=== PATIENT | female | born 1990 | race Caucasian/White ===

== ENCOUNTER 2019-04-14 19:45 | Emergency (ER) | payer BC ==
[~2019-04-14] VITALS: Ht 165.1 cm; Wt 104.3 kg
[~2019-04-14 19:45] MED LIST: AMOX TR-K CLV1 EAC1 PO; AREDIA; BIAXIN500 MG PO; CRUTCH1 EACH MISC; CYCLOBENZAPRINE10 MG PO; DOXYCYCLINE HY100 MG PO; FLAGYL500 MG PO; FOLIC ACID1 MG PO; GUAIFENESIN-CO118 ML PO; HYDROCODONE-IB1 EAC1 PO; IBUPROFEN600 MG PO; IBUPROFEN800 MG PO; LETROZOLE2.5 MG PO; MENEST1.25 MG PO; MIRENA1 EACH IY; NAPROXEN500 MG PO; NORCO 10-325 T1 EACH PO; NORCO 5-325 TA1 EACH PO; PERCOCET 5-3251 EACH PO; PRENATAL CAPLE1 EACH PO; PROCHLORPERAZIN10 MG PO; PROVENTIL HFA6.7 GM INH; PROVERA10 MG PO; TAMOXIFEN CITRA20 MG PO; TYLENOL COLD-F240 ML PO; VITAMIN B-6100 MG PO; VITAMIN D5000 UNIT PO
[2019-04-15] MEDS ORDERED: DICLOXACILLIN250 MG PO (01:17)
[2019-04-15] MEDS ORDERED: PRILOSEC OTC20 MG PO (01:17)
== END 2019-04-15 01:29 | disposition home or self-care (01) ==
LOC: ED 19:45
DX: K11.20 Sialoadenitis, unspecified (principal); J06.9 Acute upper respiratory infection, unspecified; K22.4 Dyskinesia of esophagus; F17.200 Nicotine dependence, unspecified, uncomplicated; Z85.3 Personal history of malignant neoplasm of breast; Z85.41 Personal history of malignant neoplasm of cervix uteri
CPT/HCPCS: 70360; 70491; 71046; 80053; 82150; 85025; 96361; 96374; 96375; 99284-25; J1100; J1610; J7030; Q9967

== ENCOUNTER 2019-04-16 13:32 | Emergency (ER) | payer BC ==
[~2019-04-16] VITALS: Ht 167.6 cm; Wt 117.0 kg
[~2019-04-16 13:32] MED LIST changes: +DICLOXACILLIN250 MG PO; +PRILOSEC OTC20 MG PO
--- OUTSIDE RECORDS SUMMARY | 2019-04-16 13:36 | XMS ---
PreManage Notification: VINEET CRANDALL Security Tube Cleaner Events No recent Security Events currently on file CRITERIA MET - [facility] - 2 Visits in 30 Days CARE PROVIDERS CHRIS GLASS [facility] Shruthi Kline PHONE: Unknown Maxim Maharaj Current PHONE: Unknown Marina has no Care Guidelines for this patient. Eda VISIT COUNT (12 MO.) [address] [place] [address] TOTAL 3 NOTE: Visits indicate total known visits. ED/UCC VISIT TRACKING (12 MO.) 04/16/2019 13:33 [facility] [place] TYPE: Emergency COMPLAINT: - THROAT PAIN 04/14/2019 19:46 [facility] [place] TYPE: Emergency COMPLAINT: - SOB, SWELLING 06/15/2018 14:33 [facility] [place] TYPE: Emergency COMPLAINT: - HEADACHE,NAUSEA DIAGNOSES: - Personal history of malignant neoplasm of cervix uteri - Dehydration - Nicotine dependence, unspecified, uncomplicated - Other shelter (current) drug therapy - Anemia, unspecified - Personal history of malignant neoplasm of breast - Headache INPATIENT VISIT TRACKING (12 MO.) No inpatient visits to display in this time frame [email or web address]
== END 2019-04-16 22:06 | disposition short-term general hospital (02) ==
LOC: ED 13:32
DX: K11.20 Sialoadenitis, unspecified (principal); Z85.3 Personal history of malignant neoplasm of breast; Z85.41 Personal history of malignant neoplasm of cervix uteri; Z87.891 Personal history of nicotine dependence; Z79.899 Other long term (current) drug therapy
CPT/HCPCS: 70491; 80053; 85025; 86703; 99284-25; J0295; J1100; J1885; J7030

== ENCOUNTER 2019-05-06 08:55 | Day surgery (SDC) | payer BC ==
[~2019-05-06] VITALS: Ht 167.6 cm; Wt 117.0 kg
--- NOTE | 2019-05-06 14:21 | NUR ---
05/06/19 1421 Latha Jorge 1341 PT ARRIVED TO PACU ON 8L VIA MASK, RESP EVEN AND UNLABORED. PT REACTIVE TO TACTILE STIMULI. 1345 PT DENIES PAIN AND THEN BACK TO SLEEP. 1350 PT WOKE AND STARTS CRYING AND GRIMACING. PT REPORTS PAIN 7/10, PT REPORTS HAVING A HARD TIME TALKING DUE TO PAIN AND NAUSEA AND NEEDING TO VOID. BED TORIBIO PLACED UNDER PT. 1355 NAUSEA AND PAIN MEDICATION GIVEN PER EMAR. 1400 PT CONTINUES TO CRY AND REACHING FOR HER THROAT. PAIN MEDICATION GIVEN.
--- NOTE | 2019-05-06 15:20 | NUR ---
ETELVINA 1500- PT RETURNS TO DS ROOM 5 FROM PACU ON RA. PT REQUESTS TO USE BATHROOM TO VOID. RN STAND BY ASSIST TO BATHROOM AND PT VOIDS WITHOUT DIFFICULTY. PT BACK TO BED. VSS. PT REPORTS SEVERE 7/10 PAIN IN THROAT WHEN SWALLOWING. DISCUSSED PAIN MANAGEMENT OPTIONS USING ORAL ELIXIR. FAMILY IN ROOM. PT TO SIP WATER TOLERATED. FAMILY PICKED UP PRESCRIPTION. CALL LIGHT WITHIN REACH
--- NOTE | 2019-05-06 15:40 | NUR ---
PT MEDICATED FOR PAIN SEE EMAR. FAMILY AT BEDSIDE. CALL LIGHT WITHIN REACH
--- NOTE | 2019-05-06 16:14 | NUR ---
PT REQUESTS ICE PACKS AND APPLIES THEM TO THROAT BILATERALLY. PT REPORTS DECREASE IN PAIN FROM PAIN MEDICINE ELIXIR. FAMILY PICKED UP PT'S PRESCRIPTION FOR LIDOCAINE THROAT SPRAY AND PT USES SPRAY AND REPORTS INSTANT PAIN RELIEF. VSS. PT EATING ICE CHIPS AND TALKING ON PHONE. CALL LIGHT WITHIN REACH
--- NOTE | 2019-05-06 16:32 | NUR ---
CALL TO ABOUT PT STATUS AND ABILITY TO DC HOME AT THIS TIME. VERBAL ORDERS RECEIVED TO DISCHARGE PT HOME WITH POST OP INSTRUCTION SHEET AND ENSURE PRESCRIPTIONS READY FOR USE AT HOME.
--- NOTE | 2019-05-06 17:01 | NUR ---
PT PROVIDED WITH CHICKEN BROTH. DC INSTRUCTIONS WITH PRECAUTIONS PROVIDED. PT VERBALIZES UNDERSTANDING AND DENIES FURTHER QUESTIONS. PRESCRIPTIONS FILLED PRIOR TO SURGERY. PT FINISHING BROTH AND WILL GET DRESSED SHORTLY, TOLERATE PO FLUIDS AND REPORTS FEELING MORE COMFORTABLE PAIN DUARTE. PT C/O PAIN WITH SWALLOWING BUT IS TALKING AND USING LIDOCAINE SPRAY ORDERED.
--- NOTE | 2019-05-06 17:12 | NUR ---
PT UP TO USE RESTROOM AND VOIDS WITHOUT DIFFICULTY. PT BACK TO SIT AT SIDE OF BED. VSS. IV DC'D WNL. PT ENC TO DRINK BROTH AND THEN GET DRESSED. CALL LIGHT WITHIN REACH
--- NOTE | 2019-05-06 17:35 | NUR ---
[facility] DRIV[facility] BY MOTHER
--- NOTE | 2019-05-09 11:08 | OR ---
[facility] [address], [place] [address] Signed DATE OF OPERATION: 05/06/2019 SURGEON: Sebastian Chen MD PREOPERATIVE DIAGNOSES: 1. Chronic frontal sinusitis. 2. Chronic ethmoiditis. 3. Chronic maxillary sinusitis. 4. Chronic sphenoiditis. 5. Deviated nasal septum. 6. Turbinate hypertrophy. 7. Nasal obstruction. 8. Chronic tonsillitis with tonsillar hypertrophy. 9. Obstructive sleep apnea. POSTOPERATIVE DIAGNOSES: 1. Chronic frontal sinusitis. 2. Chronic ethmoiditis. 3. Chronic maxillary sinusitis. 4. Chronic sphenoiditis. 5. Deviated nasal septum. 6. Turbinate hypertrophy. 7. Nasal obstruction. 8. Chronic tonsillitis with tonsillar hypertrophy. 9. Obstructive sleep apnea. PROCEDURES: 1. Bilateral endoscopic frontal sinusotomies, 46818-12. 2. Bilateral endoscopic total ethmoidectomies, 38640-11. 3. Nasal septoplasty, 63045. 4. Bilateral endoscopic sphenoidotomies, 21432-36. 5. Bilateral maxillary antrostomies, endoscopic, 86423-42. 6. Bilateral inferior submucous resection of turbinates, 53402-91. 7. Tonsillectomy. 8. Uvulopalatopharyngoplasty. INDICATIONS: This 28-year-old female has documented obstructive sleep apnea, has very poor nasal airway for most of her life, has to breathe through her mouth, has very large tonsils, chronic tonsillitis, tonsillolith formation, halitosis. She has chronic sinus PATIENT NAME: VINEET CRANDALL OPERATIVE REPORT DATE OF : [birth year] REPORT #: [id number] PHYSICIAN: SEBASTIAN CHEN MD PCP: PAOLA MENENDEZ DC REPORT IS CONFIDENTIAL AND NOT TO BE RELEASED WITHOUT AUTHORIZATION [facility] [address] [place], [place] [address] Signed headaches, recurring acute sinus infections, and she has generally a very complex past medical history. Evaluation of these mired different complaints including a CT scan demonstrated a narrow nasal syndrome with deviation of the septum to the left side crowding the ostiomeatal unit, inflammatory tissue in the ostiomeatal unit as well as inferior turbinate on the right side, she had a very large montana bullosa, which is also destructing her airway. The all sinus drainage was impaired by the inflammatory tissue and the patient also would have sinus infections with exacerbation of symptoms, purulent drainage made to improve at least temporarily with antibiotics. The patient also has documented sleep apnea in the hospital with oxygenation going into 70s. Examination of the pharynx showed 4+ tonsil hypertrophy, Mallampati 3 palate, also thick neck. Because of medical failure to treat this constellation of symptoms, surgery was felt to be almost lifesaving for the patient. DESCRIPTION OF PROCEDURE: The patient was placed in the supine position, had an orotracheal intubation, was placed under general anesthesia. The right side was approached first injecting the middle turbinate and lateral uncinate process and lateral wall with 1.5 mL 1% lidocaine, 1:100,000 epinephrine. [place] bullosa was stabbed with a sickle knife. Punch scissors were then insinuated in the lateral 180 degrees so the montana bullosa removed. This opened up the middle meatus very widely. The uncinate process was then removed making a stab incision and then backbiting it with removing that, also a little bit of the fontanelle posteriorly was removed to widen the maxillary ostium. The ethmoid bulla was entered with a curette and then working posteriorly with the Quinn-cut ethmoid punch and the Kerrison forceps, a transethmoidal sphenoidotomy was made into a large sphenoid sinus. Once the roof to the sphenoid sinus could be visualized, Kerrison forceps were used to remove the rostrum up to just a short of the ceiling and then following that plane with a 70-degree scope, the base of skull and the ethmoids were dissected out. The frontal sinus was very small on the patient's right side, also a lateral supraorbital ethmoid air cell double this second frontal sinus. The intervening lopez, both coronal and sagittal were removed with various forceps and then NasoPore was placed up into the sinus labyrinth with some mupirocin ointment to help prevent lateralization of the remnant of the middle turbinate. The inferior turbinate was then reduced doing a submucous resection injecting with 1 mL of Marcaine 0.5%, 1:200,000 epinephrine and making small incision with a 15 blade, the Rogerio dissection tool was used to dissect the mucoperiosteum off the inferior turbinates, both medially and laterally and then Minda forceps were used to fracture the turbinate bone in small pieces and removing it from the airway. The same thing was done on the left inferior turbinate, which had a gently narrower configuration. There was not a montana bullosa on the left side. The septum needed to be removed over, however so that the patient could breathe and also facilitate the rest of the surgery. An incision was made at the junction of the septum with the floor and then dissecting mucoperichondrium off the cartilage with a Rogerio dissection tool. Bone was from cartilage with a Rogerio D knife elevating the PATIENT NAME: VINEET CRANDALL OPERATIVE REPORT DATE OF : [birth year] REPORT #: [id number] PHYSICIAN: SEBASTIAN CHEN MD PCP: PAOLA MENENDEZ DC REPORT IS CONFIDENTIAL AND NOT TO BE RELEASED WITHOUT AUTHORIZATION [facility] [address] [place], [place] [address] Signed mucoperiosteum on both sides, then with a Vernon tool. Then, Mendieta scissors were used to cut that bone removing with Minda forceps also some degree of cartilage inferiorly and the deviated piece of cartilage very high was removed which was along the perpendicular plate of the ethmoid, but not or manipulated that is attached to the inferior surface of the nasal bones. The flaps were then based together with 4-0 chromic, the anterior incision closed with 4-0 gut. The lateralized, very floppy, and effaced middle turbinate was then resected anteroinferiorly until there was no remaining edge of the turbinate which could scar down to that lateral wall being so floppy. The uncinate process was removed same as the right side and uncinectomy performed and the maxillary ostium widened at the posterior fontanelle. Complete ethmoidectomy was done same as the right side opening the bulla and going posteriorly, again a transethmoidal sphenoidotomy was performed. The rostrum was taken down widely, then the 70-degree scope finished the dissection along the base of the skull opening all the ethmoid air cells without stripping mucosa at the limits of the dissection. The frontal sinus was much larger on the left side, it was opened up very widely with the Kerrison frontal sinus punch used to remove a good deal of the beak of the frontal sinus. More NasoPore was placed on that side with some mupirocin ointment. The table was then turned 45 degrees, McIvor mouth gag inserted exposing the right tonsil. The tonsil was grasped with a tenaculum dissecting from the pharyngeal musculature with a Bovie cautery unit allowing adequate time for thermal relaxation, the setting was on 40, doing it in a subcapsular and bloodless plane. After removing the tonsil, bismuth was placed in the tonsillar fossa with the help of postop hemostasis. Also, a few milliliters of 0.5% Marcaine and 1:200,000 epinephrine were injected avoiding an intravascular injection. Mouth gag was removed for 60 seconds, reinserted this time exposing the left side. The left tonsil was removed in similar fashion. More bismuth and other couple of milliliters of Marcaine injected and then the mouth gag let down again for 60 seconds. For the duration of the uvulopalatopharyngoplasty surgery, every 6 minutes the mouth gag was let down for 60 seconds. This was kept on the time clock. The uvula was divided precisely off the middle, pulling the left milana-palate anteriorly and laterally. The shadow of it was marked on the palate, then mucosa incised sharply with a 15 blade taking off the mucosa, also finishing it with the Metzenbaum scissors. Submucosally, 3-0 Vicryl suture was placed through that milana-uvula sewing it anteriorly into the palate and then the rest of the mucosa was also closed. Same thing was done on the right side with the right milana-palate and uvula after ascertaining that the nasopharynx had a good caliber and that it could still be collapsed with digital pressure on the palate. Estimated blood loss from all these procedures was about 100 to 125, most of it being from the sinus surgery, very little from the UPPP and tonsillectomy. No packing was placed into the nose as the patient needs her airway having sleep apnea. She went to recovery room in good condition. PATIENT NAME: VINEET CRANDALL OPERATIVE REPORT DATE OF : [birth year] REPORT #: [id number] PHYSICIAN: SEBASTIAN CHEN MD PCP: PAOLA MENNEDEZ DC REPORT IS CONFIDENTIAL AND NOT TO BE RELEASED WITHOUT AUTHORIZATION [address] [facility] [place] [place] [address] Signed MD CODY Sanford/JOSE /[id number] Copies: ~ PATIENT NAME: VINEET CRANDALL OPERATIVE REPORT DATE OF : [birth year] REPORT #: [id number] PHYSICIAN: SEBASTIAN CHEN MD PCP: PAOLA MENENDEZ DC REPORT IS CONFIDENTIAL AND NOT TO BE RELEASED WITHOUT AUTHORIZATION
--- NOTE | 2019-05-09 16:04 | PATH ---
[facility] [address] [place], [place] [address] Signed SPECIMEN(S): A RIGHT SIDE NASAL CONTENT AND SEPTUM SPECIMEN(S): B LEFT SIDE NASAL CONTENT SPECIMEN(S): C BILATERAL NASAL CONTENT SPECIMEN(S): D RIGHT TONSIL SPECIMEN(S): E LEFT TONSIL SPECIMEN SOURCE: A. RIGHT SIDE NASAL CONTENT AND SEPTUM B. LEFT SIDE NASAL CONTENT C. BILATERAL NASAL CONTENT D. RIGHT TONSIL E. LEFT TONSIL CLINICAL HISTORY: Chronic sinusitis. FINAL PATHOLOGIC DIAGNOSIS: A. Right side nasal contents: - Consistent with mild chronic sinusitis. Nasal septum: - Deviated nasal Septum. B. Left side nasal contents: - Consistent with mild chronic sinusitis. C. Bilateral sinus contents: - Consistent with mild chronic sinusitis. D, E. Right and left tonsils, bilateral tonsillectomy: - Mild hypertrophy. LJA:cml:C2NR MICROSCOPIC EXAMINATION: Histologic sections of all submitted blocks are examined by light microscopy. These findings, together with the gross examination, support the pathologic diagnosis. GROSS DESCRIPTION: Five specimens are received in five containers, labeled "JS." A. The specimen, labeled "JS, right side nasal contents," is received in formalin and consists of multiple umllen-pink soft tissue fragments admixed with bone and aggregating to 3.5 x 1.5 x 1.5 cm. Digital Marketing Officer sections are filtered and submitted in cassette (A1), following decalcification in Decal Stat. PATIENT NAME: VINEET CRANDALL PATHOLOGY DATE OF : [birth year] REPORT #: [id number] PHYSICIAN: KIP PATHOLOGY PCP: PAOLA MENENDEZ DC REPORT IS CONFIDENTIAL AND NOT TO BE RELEASED WITHOUT AUTHORIZATION [facility] [address] [place], [place] [address] Signed B. The specimen, labeled "JS, left side nasal contents," is received in formalin and consists of multiple mullen-pink soft tissue fragments admixed with bone and aggregating to 2.5 x 1.5 x 0.2 cm. The specimen is filtered and entirely submitted in cassette (B1), following decalcification in Decal Stat. C. The specimen, labeled "JS, bilateral nasal contents," is received in formalin and consists of multiple mullen-pink and hemorrhagic soft tissue fragments admixed with bone and aggregating to 3.5 x 1.5 x 1.0 cm. The specimen is filtered and entirely submitted in cassette (C1) following decalcification in Decal Stat. D. The specimen, labeled "JS, right tonsil," is received in formalin and consists of a 3.2 x 3.0 x 1.5 cm mullen-pink tonsil with smooth and glistening mucosa on one aspect and a granular resection margin on the opposing aspect. Sectioning shows mullen-pink cut surfaces with deep tonsillar crypts. No discrete lesion is grossly identified. A financial sales representative section is submitted in cassette (D1). E. The specimen, labeled "JS, left tonsil," is received in formalin and consists of a 3.5 x 3.1 x 1.5 cm mullen-pink tonsil with smooth and glistening mucosa on one aspect and a granular resection margin on the opposing aspect. The specimen is inked blue and serially sectioned to show mullen-pink cut surfaces with deep tonsillar crypts. No discrete lesion is grossly identified. A financial sales representative section is submitted in cassette (D1). AR (under the direct supervision of a pathologist) The Gross Description was prepared using a voice recognition system. The report was reviewed for accuracy; however, sound-alike word errors, addition and/or deletions may occur. If there is any question about this report, please contact Client Services. PERFORMING LABORATORY: The technical component was performed by [facility] [address] [address] (Bunker Worker: Unique Juárez MD; CLIA# [id number]). [facility], [address] [address] (Bunker Worker: Indra Maharaj MD; CLIA# [id number]). Diagnostician: Indra Maharaj MD Pathologist Electronically Signed 05/09/2019 PATIENT NAME: VINEET CRANDALL PATHOLOGY DATE OF : [birth year] REPORT #: [id number] PHYSICIAN: KIP PEREZ PCP: PAOLA MENENDEZ DC REPORT IS CONFIDENTIAL AND NOT TO BE RELEASED WITHOUT AUTHORIZATION [facility] [address] [place], [place] [address] Signed Copies: ~ PATIENT NAME: VINEET CRANDALL RIOS PATHOLOGY DATE OF : [birth year] REPORT #: [id number] PHYSICIAN: KIP PATHOLOGY PCP: PAOLA MENENDEZ DC REPORT IS CONFIDENTIAL AND NOT TO BE RELEASED WITHOUT AUTHORIZATION
== END 2019-05-06 17:30 | disposition home or self-care (01) ==
LOC: OPS 08:55 → DS 08:55 → OPS 10:00
PROVIDERS: Otolaryngology
PROC: 09BS8ZZ Excision of Right Frontal Sinus, Via Natural or Artificial Opening Endoscopic (ICD-10-PCS; 2019-05-06)
PROC: 09BR8ZZ Excision of Left Maxillary Sinus, Via Natural or Artificial Opening Endoscopic (ICD-10-PCS; 2019-05-06)
PROC: 09BW8ZZ Excision of Right Sphenoid Sinus, Via Natural or Artificial Opening Endoscopic (ICD-10-PCS; 2019-05-06)
PROC: 09BX8ZZ Excision of Left Sphenoid Sinus, Via Natural or Artificial Opening Endoscopic (ICD-10-PCS; 2019-05-06)
PROC: 09BQ8ZZ Excision of Right Maxillary Sinus, Via Natural or Artificial Opening Endoscopic (ICD-10-PCS; 2019-05-06)
PROC: 09SM0ZZ Reposition Nasal Septum, Open Approach (ICD-10-PCS; 2019-05-06)
PROC: 09BL8ZZ Excision of Nasal Turbinate, Via Natural or Artificial Opening Endoscopic (ICD-10-PCS; 2019-05-06)
PROC: 0CBPXZZ Excision of Tonsils, External Approach (ICD-10-PCS; 2019-05-06)
PROC: 0CBN0ZZ Excision of Uvula, Open Approach (ICD-10-PCS; 2019-05-06)
PROC: 09TV8ZZ Resection of Left Ethmoid Sinus, Via Natural or Artificial Opening Endoscopic (ICD-10-PCS; principal; 2019-05-06 10:00)
PROC: 09TU8ZZ Resection of Right Ethmoid Sinus, Via Natural or Artificial Opening Endoscopic (ICD-10-PCS; 2019-05-06 10:00)
PROC: 09BT8ZZ Excision of Left Frontal Sinus, Via Natural or Artificial Opening Endoscopic (ICD-10-PCS; 2019-05-06 10:00)
DX: J35.01 Chronic tonsillitis (principal); J32.4 Chronic pansinusitis; J34.2 Deviated nasal septum; J34.3 Hypertrophy of nasal turbinates; G47.33 Obstructive sleep apnea (adult) (pediatric); Z87.891 Personal history of nicotine dependence
CPT/HCPCS: J0131; J1100; J2250; J2270; J2370; J2405; J2704; J3010; J7120

== ENCOUNTER 2019-05-16 16:41 | Emergency (ER) | payer BC ==
[~2019-05-16] VITALS: Ht 167.6 cm; Wt 117.0 kg
--- OUTSIDE RECORDS SUMMARY | ~2019-05-16 | XMS | Encounter Summary ---
Demographics + + + | Address | [address] | | | [place] [address] | + + + | Home Phone | | + + + | Preferred Language | Unknown | + + + | Marital Status | Single | + + + | Islam Affiliation | Unknown | + + + | Race | White | + + + | Ethnic Group | Not or | + + + Author + + + | Author | [facility] | + + + | Organization | [facility] | + + + | Address | Unknown | + + + | Phone | Unavailable | + + + Support + + + + + | Name | Relationship | Address | Phone | + + + + + | Heidy Martinez | ECON | [address] | | | | [place] | | | | | [address] | | + + + + + Care Team Providers + +------+ + | Care Bone Glue Maker Name | Role | Phone | + +------+ + | Brenda Hudson | PCP | | + +------+ + Encounter Details +--------+ + + + + | Date | Type | Department | Care Team | Description | +--------+ + + + + | 12/07/ | Hospital | LAB SURGICAL | | | | 2011 | Encounter | PATHOLOGY [address] | | | [address] | | | | | | [place], [place] | | | | | | [address] | | | +--------+ + + + + Social History + +-------+ +--------+------+ | Tobacco Use | Types | Packs/Day | Years | Date | | | | | Used | | + +-------+ +--------+------+ | Current Every Day | | | | | | Smoker | | | | | + +-------+ +--------+------+ + +---+---+---+ | Smokeless Tobacco: | | | | | Never Used | | | | + +---+---+---+ + + +---------+ + | Alcohol Use | Drinks/Week | oz/Week | Comments | + + +---------+ + | Yes | | | rare | + + +---------+ + + + + | Sex Assigned at | Date Recorded | | | | + + + | Not on file | | + + + + + + + | Job Start Date | Occupation | Industry | + + + + | Not on file | Not on file | Not on file | + + + + + + + + | Travel History | Travel Start | Travel End | + + + + + + | No recent travel history available. | + + documented as of this encounter Plan of Treatment Not on filedocumented as of this encounter Visit Diagnoses Not on filedocumented in this encounter"
--- OUTSIDE RECORDS SUMMARY | ~2019-05-16 | XMS | Encounter Summary ---
Demographics + + + | Address | [address] | | | [place] [address] | + + + | Home Phone | | + + + | Preferred Language | Unknown | + + + | Marital Status | Single | + + + | Jehovah'S Witness Affiliation | Unknown | + + + | Race | White | + + + | Ethnic Group | Not or | + + + Author + + + | Author | [facility] | + + + | Organization | [facility] | + + + | Address | Unknown | + + + | Phone | Unavailable | + + + Support + + + + + | Name | Relationship | Address | Phone | + + + + + | Heidy Martinez | ECON | [address] | | | | [place] | | | | | [address] | | + + + + + Care Team Providers + +------+ + | Care Licensed Life And Health Agent Name | Role | Phone | + +------+ + | Brenda Hudson | PCP | | + +------+ + Reason for Referral Consultation (Routine) + +--------+ + + + + | Status | Reason | Specialty | Diagnoses / | Referred By | Referred To | | | | | Procedures | Contact | Contact | + +--------+ + + + + | Authorized | | Plastic | Diagnoses | Denys, | Abhinav, | | | | Surgery | Benign | Yumiko Del Toro, | MD Janessa | | | | | phyllodes | LAY OUT FORMER [address] | [address] | | | | | tumor Large | [address] | [address] | | | | | breasts | [facility] | [place], [place] | | | | | Mastodynia, | Rd | [address] | | | | | female | [place], [place] | Phone: | | | | | Procedures | [address] | [phone] | | | | | CONSULT TO | Phone: | Fax: | | | | | SURGERY - | [phone] | [phone] | | | | | PLASTICS | Fax: | | | | | | | [phone] | | + +--------+ + + + + Reason for Visit + + + | Reason | Comments | + + + | Follow-up visit | | + + + Consultation (Routine) + +--------+ + + + + | Status | Reason | Specialty | Diagnoses / | Referred By | Referred To | | | | | Procedures | Contact | Contact | + +--------+ + + + + | Authorized | | Surgical | | Becca, | Gómez, | | | | Oncology | | Brenda Tran, | MD Angelina | | | | | | PA | [address] | | | | | | [place] | Ave | | | | | | FAMILY | [place], [place] | | | | | | MEDICINE P | [address] | | | | | | [address] | Phone: | | | | | | [place], | [phone] | | | | | | [place] [address] | Fax: | | | | | | Phone: | [phone] | | | | | | [phone] | | | | | | | Fax: | | | | | | | [phone] | | + +--------+ + + + + Encounter Details +--------+---------+ + + + | Date | Type | Department | Care Team | Description | +--------+---------+ + + + | 12/21/ | Office | [facility] | Angelina Magaña MD | Benign phyllodes | | 2011 | Visit | at [facility] [address] | [address] | tumor; Large | | | | [address] | [place], [place] | breasts; Mastodynia, | | | | Mailcode: L223A | [address] | female | | | | [address] | [phone] | | | | | [place], [place] | | | | | | [address] | | | | | | [phone] | | | +--------+---------+ + + + Social History + +-------+ [...] + + documented as of this encounter Last Filed Vital Signs + + + + + | Vital Sign | Reading | Time Taken | Comments | + + + + + | Blood Pressure | 124/70 | 2011 9:13 AM | | | | | PDT | | + + + + + | Pulse | 89 | 2011 9:13 AM | | | | | PDT | | + + + + + | Temperature | 36.6 C (97.8 F) | 2011 9:13 AM | | | | | PDT | | + + + + + | Respiratory Rate | 14 | 2011 9:13 AM | | | | | PDT | | + + + + + | Oxygen Saturation | 97% | 2011 9:13 AM | | | | | PDT | | + + + + + | Inhaled Oxygen | - | - | | | Concentration | | | | + + + + + | Weight | 98.3 kg (216 lb 11.2 | 2011 9:13 AM | | | | oz) | PDT | | + + + + + | Height | - | - | | + + + + + | Body Mass Index | 35.67 | 09/29/2011 1:19 PM | | | | | PDT | | + + + + + documented in this encounter Progress Notes Angelina Magaña MD - 2011 9:17 AM PDTFormatting of this note might be different from t casi original. BREAST CLINIC PROGRESS NOTE 2011 Ella Weber is a 20 y.o. female is here today in the Breast [facility] for a follow-up visit. 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 Since s he was last seen in consultation, she opted to have her right breast mass excised near her h ome. 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 She is here because she is concerned about the close margin and also has persistent michelle n at the lumpectomy site. She no new breast complaints such as masses, nipple discharge, ski n changes, or adenopathy. She also denies any new constitutional symptoms such as headache, fever, weight loss, or fatigue. PAST MEDICAL/SURGICAL HISTORY: Past Medical History Diagnosis Date HTN (hypertension) well contolled no meds Cervical cancer personal history tx with cone biopsy alone Past Surgical History Procedure Date section 2009 Ovarian cyst removal 2010 MEDICATIONS: Current outpatient prescriptions:CETIRIZINE HCL (ZYRTEC ORAL), Take by mouth. , Disp: , R fl: HYDROCODONE BIT/ACETAMINOPHEN (NORCO ORAL), Take by mouth. , Disp: , Rfl: ALLERGIES: No Known Allergies REVIEW OF SYSTEMS: ROS was significant for: right breast pain. ROS was negative for all other symptoms: Review of Systems: General: No constitutional symptoms of fevers, fatigue, chills, weight loss or sweats. Eyes: No changes in vision loss, double vision, eye pain, eye irritation, discharge, blurr ed vision or light sensitivity. Ears, Nose and Throat: No hearing loss, ringing in the ears, ear discharge, earache, noseb roberta, nasal congestion, difficulty swallowing, hoarseness or sore throat. Respiratory: No shortness of breath, coughing up blood, excessive sputum, cough, chest dis comfort or wheezing. Musculoskeletal: No joint pain, swelling, stiffness, back pain, arthritis, muscle aches, m uscle cramps or loss of strength. Cardiovascular: No chest pain, skipping beats, lightheadedness, difficulty breathing uprig ht or lying down, fatigue, near fainting or fainting, palpitations, weight gain, edema, leg cramps. Gastrointestinal: No loss of appetite, excessive appetite, indigestion, vomiting, nausea, constipation, gas, abdominal pain, hemorrhoids, diarrhea, bloating, bloody stools or dark ta rry stools. Genitourinary: No urinary frequency, blood in urine, difficulty in urination, discharge, p ainful urination, incontinence, urinary urgency, genital sores, missed periods, pelvic pain or vaginal bleeding. Neurologic: No unusual headaches, inability to speak, poor balance, numbness, tingling, tr emors, memory loss, disturbances in coordination or sensation of room spinning. Skin: No itching, rash, poor wound healing, night sweats, changes in skin color, dryness, flushing or suspicious lesions. Psychological: No abnormal anxiety, depression, thoughts of suicide or hallucinations. Heme/Lymphatic: No skin discoloration, abnormal bleeding or enlarged lymph nodes. Endrocrine: No heat intolerance, cold intolerance, excessive hunger or excessive thirst. Allergic: No seasonal allergies, hives or rash, persistent infections or HIV exposure. OBJECTIVE: Vital signs: Visit Vitals Item Reading BP 124/70 Pulse 89 Temp (Src) 36.6 C (97.8 F) (Oral) RR 14 Wt 98.294 kg (216 lb 11.2 oz) SpO2 97% Physical Exam: General: Well-developed, well-nourished female in no apparent distress. Alert and oriented x 3. HEENT: Normocephalic, atraumatic. Sclerae anicteric. Neck: No palpable masses. No cervical or clavicular adenopathy. Lungs: CTAB Heart: RRR, no m/r/g Abdomen: Soft, nontender, nondistended. No palpable masses. Extremities: No cyanosis, clubbing, or edema. No lymphedema. Breast: A multipositional, bilateral breast exam was performed. Right breast: lower outer q uadrant curved scar, with 4mm area of scar tissue on deep palpation that is tender to palpat ion; no palpable dominant masses, no nipple discharge, no skin changes. Right axilla: no pal pable adenopathy. Left breast: no palpable dominant masses, no nipple discharge, no skin roman nges. Left axilla: no palpable adenopathy. DATA: US BREAST RIGHT (no units) Date Value Range Status 2011 Final Value: Patient History: Patient has history of high-risk lesion on a previous biopsy at age 20. High risk ultrasound-guided core biopsy of the right breast, August 26, 2011. 611.72 Lump or mass in breast Reason for Exam/Referral Diagnosis?->Lump Ht on (09/29/2011) 166 cm (5' 5.35"), Wt on (09/29/2011) 91.354 kg (201 lbs 6.4 oz) US BREAST RIGHT: 2011 - Prior study comparison: December 18, 2011, MAMMS OUTSIDE FILMS. November 27, 2011, US BREAST RIGHT, performed at an outside facility. August 21, 2011, US BREAST RIGHT, performed at an outside facility. The patient has had a phyllodes tumor removed from the right breast at 8:00 and has new deep pain at 9-10:00. The right breast was scanned over area of palpable concern which is between 9:00 and 10:00 o'clock. Normal breast tissue is seen around the area scanned. There is no mass or abnormality at the insicion site. ASSESSMENT: Benign - Category 2 RECOMMENDATION: Continued clinical monitoring. This was discussed with the patient. Attending Radiologists: MELBA NO M.D. Author: Ann Ocasio M.D. I have personally viewed this procedure/exam, reviewed this report, and made changes to it where appropriate. Final/Electronically signed / MELBA NO 2011 12:35 PM PATHOLOGY CONSULT - SLIDES: SOURCE OF SPECIMEN:A Right lateral breast biopsy Materials Received: Referring Institution: [facility] [place] [address] Outside Accession Number: [id number] Sample Collection Date: 10/02/2011 Sublabeled H&E 1 to 5 5 Final Pathologic Diagnosis: Right lateral breast, biopsy ([id number], 10/02/11): - Phyllodes tumor with low grade features, 4 cm size (see comment) - Phyllodes tumor extends to unoriented margin Comment: Thank you for sharing this case for our review. We fully concur with the referring diagnosis. Sections show a fibroepithelial neoplasm with "leaf-like" architecture, hypercellular stroma, and relatively bland stromal cytologic features. There is no evidence of overt cytologic malignancy within the stroma, and the mitotic rate does not appear elevated. Nevertheless, excision of even low grade phyllodes tumors with appropriate margins is recommended. Case seen by: Rose Cash, Ph.D., M.D./Pathologist Slides will be returned at a later date :jennifer Clinical History: The patient is a 20-year-old female with prior breast core needle biopsy demonstrating a fibroepithelial lesion (previously reviewed as [id number]). The subsequent resection specimen is submitted as the patient is seeing Dr. Magaña. My electronic signature indicates that I have personally reviewed all diagnostic slides, the gross and/or microscopic portion of this report and formulated the final diagnosis. Rendering Diagnostician: Rose Cash M.D. Ph.D. Pathologist Electronically Signed 12/10/2011 7:50PM --------- ASSESSMENT: Ella is here today for a 2nd opinion regarding management of her right lita st benign phyllodes tumor, excised with close margin. She also complains of pain at that sit e. Both clinical breast exam and breast imaging today do not show any evidence of any suspi cious lesions. As I had explained to her at her initial consultation, I again explained that generally excision with 1cm circumferential margins is recommended for phyllodes tumor to r educe risk of local recurrence. It may be difficult to do re-excision at this time as the stone rgical cavity has collapsed, but there is some scar tissue that is palpable, and excision ca n be performed around this site. I explained that additional surgery would likely not resolv e her pain, and might worsen it. The patient asked about mastectomy, and mastectomy would no t be recommended at this time. The patient is also interested in oncoplastic bilateral breas t reduction as an option. I will refer her to plastic surgery to discuss this as an option, that could be combined with her re-excision lumpectomy. I personally took the history and ph ysical of the patient. PLAN: 1. Refer to Dr. La in plastic surgery to discuss oncoplastic bilateral breast reduction for right breast phyllodes. 2. Offered right breast re-excision lumpectomy. I would like to thank AMANDO Richard for allowing me to participate in the care of this pleasant patient. docume nted in this encounter Plan of Treatment Not on filedocumented as of this encounter Visit Diagnoses + + | Diagnosis | + + | Benign phyllodes tumor Benign neoplasm of breast | + + | Large breasts Hypertrophy of breast | + + | Mastodynia, female Mastodynia | + + documented in this encounter
--- OUTSIDE RECORDS SUMMARY | ~2019-05-16 | XMS | Clinical Summary ---
Demographics + + + | Address | [address] | | | [place] [address] | + + + | Home Phone | | + + + | Preferred Language | Unknown | + + + | Marital Status | Single | + + + | Druze Affiliation | Unknown | + + + | Race | White | + + + | Ethnic Group | Not or | + + + Author + + + | Author | [facility] | + + + | Organization | [facility] | + + + | Address | Unknown | + + + | Phone | Unavailable | + + + Support + + + + + | Name | Relationship | Address | Phone | + + + + + | Heidy Martinez | ECON | [address] | | | | | [place] | | | | | [address] | | + + + + + Care Team Providers + +------+ + | Care Defensive Secondary Coach Name | Role | Phone | + +------+ + PCP | Unavailable | + +------+ + Source Comments [facility] is fully live on both [facility] and [facility] Allergies No Known Allergies Medications + + + +---------+------+------+-------+ | Medication | Sig | Dispensed | Refills | Star | End | Statu | | | | | | t | Date | s | | | | | | Date | | | + + + +---------+------+------+-------+ | CETIRIZINE HCL | Take by mouth. | | 0 | | | Activ | | (ZYRTEC ORAL) | | | | | | e | + + + +---------+------+------+-------+ | MELATONIN ORAL | Take by mouth once | | 0 | | | Activ | | | daily at bedtime. | | | | | e | + + + +---------+------+------+-------+ Active Problems + + + | Problem | Noted Date | + + + | Benign phyllodes tumor of breast | 04/14/2012 | + + + | Lump or mass in breast | 09/30/2011 | + + + | Chronic constipation with overflow | 08/28/2005 | + + + Family History + + +------+ + | Medical History | Relation | Name | Comments | + + +------+ + | Cancer | Maternal | | cervical and breast | | | Aunt | | | + + +------+ + | Cancer | Maternal | | ? lymphoma | | | Grandfath | | | | | er | | | + + +------+ + | Cancer | Mother | | colon and breast | + + +------+ + | Cancer | Paternal | | lung | | | Grandfath | | | | | er | | | + + +------+ + | Cancer | Paternal | | brain | | | Grandmoth | | | | | er | | | + + +------+ + + +------+--------+ + | Relation | Name | Status | Comments | + +------+--------+ + | Maternal Aunt | | | | + +------+--------+ + | Maternal Grandfather | | | | + +------+--------+ + | Mother | | | | + +------+--------+ + | Paternal Grandfather | | | | + +------+--------+ + | Paternal Grandmother | | | | + +------+--------+ + Social History + + + +--------+------+ | Tobacco Use | Types | Packs/Day | Years | Date | | | | | Used | | + + + +--------+------+ | Current Every Day | Cigarettes | 0.3 | | | | Smoker | | | | | + + + +--------+------+ + +---+---+---+ | Smokeless Tobacco: | [...] recent travel history available. | + + Last Filed Vital Signs + + + + + | Vital Sign | Reading | Time Taken | Comments | + + + + + | Blood Pressure | 117/71 | 04/08/2012 4:19 PM | | | | | PDT | | + + + + + | Pulse | 70 | 04/08/2012 4:19 PM | | | | | PDT | | + + + + + | Temperature | 36.7 C (98 F) | 04/08/2012 4:19 PM | | | | | PDT | | + + + + + | Respiratory Rate | 14 | 04/08/2012 4:19 PM | | | | | PDT | | + + + + + | Oxygen Saturation | 99% | 04/08/2012 4:19 PM | | | | | PDT | | + + + + + | Inhaled Oxygen | - | - | | | Concentration | | | | + + + + + | Weight | 95.6 kg (210 lb 12.8 | 04/08/2012 4:19 PM | | | | oz) | PDT | | + + + + + | Height | 165.1 cm (5' 5") | 01/14/2012 2:27 PM | | | | | PDT | | + + + + + | Body Mass Index | 35.08 | 01/14/2012 2:27 PM | | | | | PDT | | + + + + + Plan of Treatment + + + + + | Health Maintenance | Due Date | Last Done | Comments | + + + + + | Pneumococcal | | | | | vaccination (1 of | 7 | | | | - PPSV23) | | | | + + + + + | Influenza (Flu) | | | | | vaccination (#1) | 9 | | | + + + + + Results Not on filefrom Last 3 Months Insurance + +--------+ +--------+ + +------+ | Payer | Benefi | Subscriber | Effect | Phone | Address | Type | | | t Plan | ID | [id number] | | | | | | / | | Dates | | | | | | Group | | | | | | + +--------+ +--------+ + +------+ | [facility] | PHP | [phone] | 07/20/19 | [phone] | [address] | PPO | | | [address] | | 10-Pre | 0 | [address] | [address] | | sent | | [place], | | | | [place] | | | | [place] [address] | | + +--------+ +--------+ + +------+ + +--------+ +--------+ + + | Guarantor Name | Accoun | Relation to | Date | Phone | Billing Address | | | t Type | Patient | of | | | | | | | | | | + +--------+ +--------+ + + | Ella Weber | Person | Self [birth year] | [address] | | | al/Fam | | 1991 | [phone] | [place] [address] | | | olvin | | | 9 (Home) | | + +--------+ +--------+ + +
--- OUTSIDE RECORDS SUMMARY | ~2019-05-16 | XMS | Encounter Summary ---
Demographics + + + | Address | [address] | | | [place] [address] | + + + | Home Phone | | + + + | Preferred Language | Unknown | + + + | Marital Status | Single | + + + | Lutheran Affiliation | Unknown | + + + | Race | White | + + + | Ethnic Group | Not or | + + + Author + + + | Author | [facility] | + + + | Organization | [facility] | + + + | Address | Unknown | + + + | Phone | Unavailable | + + + Support + + + + + | Name | Relationship | Address | Phone | + + + + + | Heidy Martinez | ECON | [address] | | | | [place] | | | | | [address] | | + + + + + Care Team Providers + +------+ + | Care Family Assistant Name | Role | Phone | + +------+ + | Brenda Hudson | PCP | | + +------+ + Reason for Referral PROC - Outpatient Surgery (Routine) +--------+--------+ + + + + | Status | Reason | Specialty | Diagnoses / | Referred By | Referred To | | | | | Procedures | Contact | Contact | +--------+--------+ + + + + | Denied | | Plastic | Diagnoses | Abhinav | Mireya | | | | Surgery | Kat | MD Janessa | Gen/Recon | | | | | Procedures | [address] | [address] | | | | | REQUEST TO | [address] | [address] | | | | | SURGERY | [place], [place] | Mailcode: | | | | | SAMPLER TESTER | [address] | [address] | | | | | [place] [facility] | Phone: | for Health | | | | | OF LARGE | [phone] | and Healing, | | | | | BREAST [place] | Fax: | Building 1, | | | | | REDUCTION OF | [phone] | 5th Floor | | | | | LARGE | | [place], [place] | | | | | BREAST | | [address] | | | | | | | Phone: | | | | | | | [phone] | +--------+--------+ + + + + Reason for Visit [...] | | | | | phyllodes | CUSTOMER SERVICE TELLER [address] | [address] | | | | | tumor Large | [address] | [address] | | | | | breasts | [place] | [place], [place] | | | | | Mastodynia, | Rd | [address] | | | | | female | [place], [place] | Phone: | | | | | Procedures | [address] | [phone] | | | | | CONSULT TO | Phone: | Fax: | | | | | SURGERY - | [phone] | [phone] | | | | | PLASTICS | Fax: | | | | | | | [phone] | | + +--------+ + + + + Encounter Details +--------+---------+ + + + | Date | Type | Department | Care Team | Description | +--------+---------+ + + + | 04/08/ | Office | Plastic and | Janessa La, | Macromastia; Hx of | | 2011 | Visit | Reconstructive | [address] | malignant phylloides | | | | Surgery -Cosmetic | [place], [place] | tumor of breast | | | | [address] | [address] | | | | | Mailcode: CH5 | [phone] | | | | | [facility] | | | | | | and [place], | | | | | | Building | | | | | | Floor [place], [place] | | | | | | [address] | | | | | | [phone] | | | +--------+---------+ + + + Social History + + + +--------+------+ [...] | Blood Pressure | 117/71 | 04/08/2012 3:42 PM | | | | | PDT | | + + + + + | Pulse | 70 | 04/08/2012 3:42 PM | | | | | PDT | | + + + + + | Temperature | 36.7 C (98 F) | 04/08/2012 3:42 PM | | | | | PDT | | + + + + + | Respiratory Rate | 14 | 04/08/2012 3:42 PM | | | | | PDT | | + + + + + | Oxygen Saturation | 99% | 04/08/2012 3:42 PM | | | | | PDT | | + + + + + | Inhaled Oxygen | - | - | | | Concentration | | | | + + + + + | Weight | 95.4 kg (210 lb 4.8 | 04/08/2012 3:42 PM | | | | oz) | PDT | | + + + + + | Height | - | - | | + + + + + | Body Mass Index | 35 | 01/14/2012 2:27 PM | | | | | PDT | | + + + + + documented in this encounter Progress Notes Janessa La MD - 04/08/2012 6:18 PM PDTI personally interviewed the patient, performe d the physical examination and personally formulated the plan with Dr. Abel. I agree with the residents documentation and have documented any additions or exceptions. Ella returns today to again discuss breast reduction. She is now much clearer about he r desire for breast reduction. She has reqyested a DD size. She has large pendulous breast s. I anticipate removal of 500 gm per breast. This would be done in conjunction with Dr. Roland villalpando who may be able to better assess the phylloides resection field to try to get clear sai ins. Ella is aware that breast reduction will rearrange the tissue internally and that follow up for her phylloides tumor will require examination of the entire breast. A pedicle on the right will be done with the knowledge that the prior resection may have si gnificantly undermined the NAC and encroached on an inferior pedicle. onsuelo Abel Md - 04/08/2012 2:27 PM PDT BREAST RECONSTRUCTION FOLLOW UP SUBJECTIVE History of Present Illness: Ella Weber is a 21 y.o. 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 She has been seen by Dr. Cecille rodriguez for consideration for wide re- excision. She saw Dr La in December 2011 for consideration for breast reduction. At that time, Dr La did not recommend proceeding with Breast redu ction as the patient would likely not be pleased with the outcome. She returns today because she has reconsidered and is now quite interested in breast reduction. Pt relays that she schaeffer s significant neck and upper back pain related to her sizeable breasts. Relays no intertrigi nous rashes. Pt relays that she bikes to work and her weight has gone down a bit. Current bra size: 34 H Desired cup size: DDD or large D cup- Family history of breast disease: mother and aunt both recently diagnosed with breast cance r - premenopausal Past Medical History Diagnosis Date HTN (hypertension) well contolled no meds Cervical cancer personal history tx with cone biopsy alone Past Surgical History Procedure Date section 2009 Ovarian cyst removal 2010 Appendectomy 2011 Breast lumpectomy 2011 right phylloides tumor No Known Allergies Current Outpatient Prescriptions Medication Sig CETIRIZINE HCL (ZYRTEC ORAL) Take by mouth. HYDROCODONE BIT/ACETAMINOPHEN (NORCO ORAL) Take by mouth. Social history: Lives ion [place] with boyfriend and 2 year old son Juan C History Substance Use Topics Smoking status: Current Everyday Smoker -- 0.3 packs/day Types: Cigarettes Smokeless tobacco: Never Used Alcohol Use: Yes rare Family History Problem Relation Cancer Paternal Grandfather lung Cancer Paternal Grandmother brain Cancer Mother colon and breast Cancer Maternal Aunt cervical and breast Cancer Maternal Grandfather ? lymphoma Review of Systems: One episode of MRSA infection in 2009. Bleeds easily but no excessive bleeding with prior surgeries. Living at home with patient: boyfriend PHYSICAL EXAM Vitals: There were no vitals taken for this visit. General appearance: Well-developed and well-nourished adult female in no apparent distress. Neck: Supple without lymphadenopathy. Right Breast: Sternal notch to nipple distance: 31 cm Breast width: 16.5 cm Mid-line to nipple: 11 cm Ptosis: gr 3/4 - IMFN - 14- nipple 5.5 cm below IMF 4 cm curvilinear scar outer lower quadrant Left Breast: Sternal notch to nipple distance: 31 cm Breast width: 16.5 cm Mid-line to nipple: 12.5 cm Ptosis: gr 3 - IMFN - 15-nipple 5.5 cm below IMF Assessment: Pt is an excellent candidate for breast reduction. Anticipate removal of approximately 350- 400g. We cannot be certain that we will be able to address the previous tumour site as the original margins were not oriented. We will be altering the anatomy and intensive breast exa minations will be required of the patient and her practitioners in the future. Pt is interes corrina in scheduling bilateral breast reduction. We will have our central scheduler contact her to sche dule her operation doc umented in this encounter Plan of Treatment Not on filedocumented as of this encounter Visit Diagnoses + + | Diagnosis | + + | Macromastia Hypertrophy of breast | + + | Hx of malignant phylloides tumor of breast Personal history of malignant neoplasm of | | breast | + + documented in this encounter"
--- OUTSIDE RECORDS SUMMARY | ~2019-05-16 | XMS | Encounter Summary ---
Demographics + + + | Address | [address] | | | [place] [address] | + + + | Home Phone | | + + + | Preferred Language | Unknown | + + + | Marital Status | Single | + + + | Hindu Affiliation | Unknown | + + + | Race | White | + + + | Ethnic Group | Not or | + + + Author + + + | Author | [facility] | + + + | Organization | [facility] | + + + | Address | Unknown | + + + | Phone | Unavailable | + + + Support + + + + + | Name | Relationship | Address | Phone | + + + + + | Heidy Martinez | ECON | [address] | | | | | [place] | | | | | [address] | | + + + + + Care Team Providers + +------+ + | Care Business Project Manager Name | Role | Phone | + +------+ + PCP | Unavailable | + +------+ + Encounter Details +--------+ + + + + | Date | Type | Department | Care Team | Description | +--------+ + + + + | 11/11/ | Office | [facility] | Clinic, Ped | Progress Note | | 2005 | Visit-Trans | GASTROENTEROLOGY | Gastroenterology | | | | cribed | | | | +--------+ + + + + Social History + +-------+ +--------+------+ | Tobacco Use | Types | Packs/Day | Years | Date | | | | | Used | | + +-------+ +--------+------+ | Never Assessed | | | | | + +-------+ +--------+------+ + + + | Sex Assigned at [...] + + documented as of this encounter Progress Notes Interface, Skein Washer In - 11/14/2005 2:03 AM PDT [id number] [facility]: [facility] Clinic: Pediatric Gastroenterology I received patient's TSH that was drawn on October 03, 2005, normal at 1.60. She also had a lumbar spine series on October 02, 2005, that was normal. No sign of spinal dysraphism or any degenerative changes. Rosalie Corcoran. MARCO A / [id number] / [id number] / [id number] / documented i n this encounter Plan of Treatment Not on filedocumented as of this encounter Visit Diagnoses Not on filedocumented in this encounter"
--- OUTSIDE RECORDS SUMMARY | ~2019-05-16 | XMS | Encounter Summary ---
Demographics + + + | Address | [address] | | | [place] [address] | + + + | Home Phone | | + + + | Preferred Language | Unknown | + + + | Marital Status | Single | + + + | Yarsanism Affiliation | Unknown | + + + | Race | White | + + + | Ethnic Group | Not or | + + + Author + + + | Author | [facility] | + + + | Organization | [facility] | + + + | Address | Unknown | + + + | Phone | Unavailable | + + + Support + + + + + | Name | Relationship | Address | Phone | + + + + + | Heidy Martinez | ECON | [address] | | | | | [place] | | | | | [address] | | + + + + + Care Team Providers + +------+ + | Care Head Of Digital Advertising & Integration Name | Role | Phone | + +------+ + | Brenda Hudson | PCP | | + +------+ + Encounter Details +--------+ + + + + | Date | Type | Department | Care Team | Description | +--------+ + + + + | 09/18/ | Soils Engineer | [facility] | Angelina Magaña MD | Breast lump (Primary | | 2011 | | at [facility] [address] | [address] | Dx) | | | | [address] | [place], [place] | | | | | Mailcode: [id number] | [address] | | | | | Manuel Charlton | [phone] | | | | | [place], [place] | | | | | | [address] | | | | | | [phone] | | | +--------+ + + + [...] Not on filedocumented as of this encounter Procedures + +--------+ + + + | Procedure Name | Priori | Date/Time | Associated Diagnosis | Comments | | | ty | | | | + +--------+ + + + | PATHOLOGY CONSULT - | Routin | 08/26/2011 | Breast lump | Results for this | | REVIEW OUTSIDE | e | | | procedure are in the | | SLIDES | | | | results section. | + +--------+ + + + documented in this encounter Results PATHOLOGY CONSULT - REVIEW OUTSIDE SLIDES (08/26/2011) + + + + + + | Component | Value | Ref Range | Performed | Pathologist | | | | | At | Signature | + + + + + + | PATHOLOGY | SOURCE OF SPECIMEN:A | | [facility] | | | CONSULT - | Right breast needle | | DEPARTMENT | | | SLIDES | biopsy Materials | | OF | | | | Received:Referring | | PATHOLOGY | | | | Institution: [facility] | | | | | | [facility], | | | | | | , [place], | | | | | | Aaron Accession | | | | | | Number: [id number] | | | | | | Collection Date: | | | | | | 08/26/2011Sublabeled | | | | | | | | | | | | H&E | | | | | | IHC | | | | | | Unstained | | | | | | Blocks 1 | | | | | | | | | | | | 1 0 | | | | | | | | | | | | 00 Final | | | | | | Pathologic | | | | | | Diagnosis:Breast, right, | | | | | | needle biopsy | | | | | | ([id number], 08/26/11): | | | | | | - 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 We | | | | | | agree withthe referring | | | | | | pathologist's and | | | | | | car sales consultant's diagnosis | | | | | | of fibroepitheliallesion | | | | | | with some atypical | | | | | | features. Some of the | | | | | | core segments sampled | | | | | | havea paucicellular, | | | | | | hyalinized stroma | | | | | | typical of fibroadenoma, | | | | | | with focalareas of | | | | | | pseudoangiomatous | | | | | | stromal hyperplasia | | | | | | (PASH). However, other | | | | | | areashave a looser, more | | | | | | cellular stroma which | | | | | | could represent | | | | | | eitherfibroadenoma or | | | | | | phyllodes tumor. | | | | | | Architecture and | | | | | | stromal overgrowth | | | | | | isdifficult to assess in | | | | | | a core needle biopsy; | | | | | | thus I agree with | | | | | | theconsultant that an | | | | | | excisional biopsy would | | | | | | be necessary for a | | | | | | definitiveclassification | | | | | | . Case seen | | | | | | by:Rose Cash, | | | | | | M.D., | | | | | | Ph.D./PathologistThis | | | | | | slide will be returned | | | | | | at a later | | | | | | date. | | | | | | Clinical History:The | | | | | | patient is a 20-year-old | | | | | | woman with a nodule in | | | | | | her right breast and | | | | | | afamily history of early | | | | | | breast cancer. This | | | | | | case was previously | | | | | | reviewedfor expert | | | | | | consultation by | | | | | | Stacy Moralez at [facility]. | | | | | | The patient is | | | | | | nowbeing seen at [facility]'s | | | | | | Breast Tumor Board. | | | | | | My electronic | | | | | | signature indicates that | | | | | | I have personally | | | | | | reviewed alldiagnostic | | | | | | slides, the gross and/or | | | | | | microscopic portion of | | | | | | thisreport and | | | | | | formulated the final | | | | | | diagnosis. | | | | | | Rendering Diagnostician: | | | | | | Rose Cash M.D. | | | | | | Ph.D.PathologistElectron | | | | | | ann Signed 09/23/2011 | | | | | | 6:04PM | | | | + + + + + + + + | Specimen | + + | Slide | + + + + + + + | Performing | Address | City/State/Zipcode | Phone Number | | Organization | | | | + + + + + | [facility] | [address] | [place] [address] | | | PATHOLOGY | [address] | | | + + + + + documented in this encounter Visit Diagnoses + + | Diagnosis | + + | Breast lump - Primary Lump or mass in breast | + + documented in this encounter"
--- OUTSIDE RECORDS SUMMARY | ~2019-05-16 | XMS | Encounter Summary ---
Demographics + + + | Address | [address] | | | [place] [address] | + + + | Home Phone | | + + + | Preferred Language | Unknown | + + + | Marital Status | Single | + + + | Sabianist Affiliation | Unknown | + + + | Race | White | + + + | Ethnic Group | Not or | + + + Author + + + | Author | [facility] | + + + | Organization | [facility] | + + + | Address | Unknown | + + + | Phone | Unavailable | + + + Support + + + + + | Name | Relationship | Address | Phone | + + + + + | Heidy Martinez | ECON | [address] | | | | | [place] | | | | | [address] | | + + + + + Care Team Providers + +------+ + | Care Snout Puller Name | Role | Phone | + +------+ + | Brenda Hudson | PCP | | + +------+ + Reason for Referral Consult to [place] (Routine) +--------+--------+ + + + + | Status | Reason | Specialty | Diagnoses / | Referred By | Referred To | | | | | Procedures | Contact | Contact | +--------+--------+ + + + + | Closed | | Surgical | Diagnoses | [place], | [place] | | | | Oncology | Som | Yumiko Del Toro | MD Angelina | | | | | tumor | MARKETING AND PUBLIC RELATIONS MANAGER [address] | [address] | | | | | Procedures | [address] | [address] | | | | | REQUEST TO | [facility] | [place], [place] | | | | | SURGERY | Rd | [address] | | | | | SHANK CEMENTER HAND | [place], [place] | Phone: | | | | | | [address] | [phone] | | | | | | Phone: | Fax: | | | | | | [phone] | [phone] | | | | | | Fax: | | | | | | | [phone] | | +--------+--------+ + + + + Reason for Visit + + + | Reason | Comments | + + + | Pre-Admission | | + + + Encounter Details +--------+ + + + + | Date | Type | Department | Care Team | Description | +--------+ + + + + | 03/31/ | PreAdmit | Surgical Oncology | Yumiko Mcfarlane, | Pre-Admission | | 2011 | Orders | at [facility] [address] | MARKETING AND PUBLIC RELATIONS MANAGER [address] | | | | | Alan Garnica Mail Code: | [address] | | | | | [facility] | [place], [place] | | | | | and Healing, | [address] | | | | | [place] [address] | [phone] | | | | | [place], [place] | | | | | | [address] | | | | | | [phone] | | | +--------+ + + + + Social History + + [...] + | Diagnosis | + + | Phyllodes tumor Neoplasm of uncertain behavior of breast | + + documented in this encounter"
--- OUTSIDE RECORDS SUMMARY | ~2019-05-16 | XMS | Encounter Summary ---
Demographics + + + | Address | [address] | | | [place] [address] | + + + | Home Phone | | + + + | Preferred Language | Unknown | + + + | Marital Status | Single | + + + | Orthodoxy Affiliation | Unknown | + + + | Race | White | + + + | Ethnic Group | Not or | + + + Author + + + | Author | [facility] | + + + | Organization | [facility] | + + + | Address | Unknown | + + + | Phone | Unavailable | + + + Support + + + + + | Name | Relationship | Address | Phone | + + + + + | Heidy Martinez | ECON | [address] | | | | | [place] | | | | | [address] | | + + + + + Care Team Providers + +------+ + | Care Braider Operator Name | Role | Phone | + +------+ + PCP | Unavailable | + +------+ + Encounter Details +--------+ + + + + | Date | Type | Department | Care Team | Description | +--------+ + + + + | 08/28/ | Office | Pediatric | Nancy Hidalgo, | | | 2005 | Visit-ECX | Gastroenterology at | PNP [address] | | | | | [address] [place], [place] | | | | | [facility] | [address] | | | | | [address] | [phone] | | | | | Ninfa Lafleur Mailcode: | | | | | | [address] | | | | | | [place], [place] | | | | | | [address] | | | | | | [phone] | | | +--------+ + + + [...]
--- OUTSIDE RECORDS SUMMARY | ~2019-05-16 | XMS | Encounter Summary ---
Demographics + + + | Address | [address] | | | [place] [address] | + + + | Home Phone | | + + + | Preferred Language | Unknown | + + + | Marital Status | Single | + + + | Restorationism Affiliation | Unknown | + + + | Race | White | + + + | Ethnic Group | Not or | + + + Author + + + | Author | [facility] | + + + | Organization | [facility] | + + + | Address | Unknown | + + + | Phone | Unavailable | + + + Support + + + + + | Name | Relationship | Address | Phone | + + + + + | Heidy Martinez | ECON | [address] | | | | | [place] | | | | | [address] | | + + + + + Care Team Providers + +------+ + | Care Chef Head Name | Role | Phone | + +------+ + PCP | Unavailable | + +------+ + Encounter Details +--------+ + + + + | Date | Type | Department | Care Team | Description | +--------+ + + + + | 08/26/ | Hospital | LAB SURGICAL | | | | 2011 | Encounter | PATHOLOGY [address] | | | | | [address] | | | | | | [place], [place] | | | | | | [address] | | | +--------+ + + + [...]
--- OUTSIDE RECORDS SUMMARY | ~2019-05-16 | XMS | Encounter Summary ---
Demographics + + + | Address | [address] | | | [place] [address] | + + + | Home Phone | | + + + | Preferred Language | Unknown | + + + | Marital Status | Single | + + + | Adventism Affiliation | Unknown | + + + | Race | White | + + + | Ethnic Group | Not or | + + + Author + + + | Author | [facility] | + + + | Organization | [facility] | + + + | Address | Unknown | + + + | Phone | Unavailable | + + + Support + + + + + | Name | Relationship | Address | Phone | + + + + + | Heidy Martinez | ECON | [address] | | | | [place] | | | | | [address] | | + + + + + Care Team Providers + +------+ + | Care Health Care Marketing Manager Name | Role | Phone | + +------+ + PCP | Unavailable | + +------+ + Encounter Details +--------+ + + + + | Date | Type | Department | Care Team | Description | +--------+ + + + + | 08/28/ | Office | [facility] | Clinic, Ped | Progress Note | | 2006 | Visit-Trans | GASTROENTEROLOGY | Gastroenterology | [...] as of this encounter Progress Notes Interface, Senior Climate Advisor In - 09/04/2005 2:03 AM PST [id number] TIA MANLEY Clinic Date: 08/28/2005 Clinic: Pediatric Gastroenterology Chief Complaint: Encopresis. Allergies: None. Current Medications: MiraLax 17 g twice daily. Subjective: Ella is a 14 year and 9 month old in clinic accompanied by her father for evaluation of encopresis. The family states that Ella's symptoms initially developed when she was approximately 5 years of age. At that time, she had lower intestinal abdominal pain, stool soiling, and constipation. Symptoms have been fairly consistent through that time. She was eventually placed on MiraLax 34 g a day, which seemed to work well for approximately the year that she was on this. In May 2005, it was felt that she could decrease her dose to 17 g, however, once that occurred, Ella felt as if she was not completely emptying her rectum when she was going to the toilet. She also became less regular. She was eating a high-fiber diet and doing regular toilet sitting and no withholding. She was placed on a fairly restricted diet at Thanksgiving time in hopes that this would improve her constipation. This did not help and so her dose of MiraLax was increased to 17 g twice daily again. There is some history of her having had constipation as early as infancy. The family's main concern at this time is that when she gets backed up, she loses some control of her bowels and she has soiling. She also frequently has abdominal pain that is generalized when she is more constipated. She does have some upper quadrant abdominal pain, particularly after cheese, where she becomes crampy. She is not experiencing any enuresis. No change in her gait or muscle strength. The family are wondering if this is a component of irritable bowel. They are questioning this because apparently the patient seems to be fairly sensitive to stress and change in that she typically has increased bowel problems during these times. She was recently on Prevacid for possible gastritis. The family states that this did not significantly improve her upper right quadrant abdominal pain symptoms. Past Medical History: The patient is the product of a full-term . weight 8 pounds 15 ounces. She has never been hospitalized. No other surgery or significant medical illnesses. Family Medical History: Family history of irritable bowel in the mother. Family history otherwise noncontributory. Social History: The patient lives at home with her father, step-mother, and 4 siblings. The patient is in 9th grade. She is home schooled via the internet. She is doing well there. Multiple pets that are healthy. City water. No travel outside the [place]. Review of Systems: Vital Signs: Stable weight. No change in appetite or thirst. HEENT: Negative. Lungs: Negative. Chest : Negative. Gastrointestinal: Abdominal pain as noted in the subjective. Constipation. Soiling as noted in the subjective. Genitourinary: No hematochezia or melena. No urinary tract infections or enuresis. Skin: No pallor, bruising, or bleeding. No rashes. Neurologic: No change in gait or muscle strength. No history of seizure, dizziness, or murmur. General: The patient states she is not sexually active. No use of alcohol or illicit drugs. Review of systems otherwise negative. Physical Examination: Vital Signs: Her weight is 63.9 kg at the 85th percentile, height 166.3 cm at the 76th percentile, BMI is 23.1 at the 81st percentile, blood pressure 131/74, and pulse 84. General: An alert, well-appearing, and very articulate young lady in no distress. HEENT: Head normocephalic and atraumatic. PERRLA. Red reflexes present bilaterally. Conjunctivae are clear. Oropharynx: Nares negative. Neck: Full range in motion, no adenopathy, and no thyromegaly. Chest: Clear to auscultation, anterior, posterior, and bilateral. Cardiac: Regular rate and rhythm. No murmur, gallop, or rub. Abdomen: Flat, nondistended, no hepatosplenomegaly or other masses. Rectal: Normal placement of the rectal sphincter, good sphincter tone, positive anal wink, and no stool in the rectal vault on digital exam. No skin tags or fissures. Even gluteal folds, small dimple in the sacrum. Otherwise negative. Skin: Warm, pink, and well perfused. No exanthems. No bruising or bleeding. Warm and dry. Extremities: Negative. Assessment : Functional constipation with occasional stool soiling. The patient has done well in the past with twice daily dosing of MiraLax. Her symptoms resumed when MiraLax was decreased. No evidence of neurogenic cause of her constipation present. Recommendation: 1. Restart MiraLax 17 g twice daily. 2. Lab work to include a TSH and free T4. 3. Due to sacral dimple, would request a 2-view of her LS spine as well as a KUB to evaluate the extent of stool in her colon. 4. Follow in clinic Suraj BenitoT / [id number] / [id number] / [id number] / [id number] cc: [facility], [address] [address] documented i n this encounter Plan of Treatment Not on filedocumented as of this encounter Visit Diagnoses Not on filedocumented in this encounter"
--- OUTSIDE RECORDS SUMMARY | ~2019-05-16 | XMS | Encounter Summary ---
Demographics + + + | Address | [address] | | | [place] [address] | + + + | Home Phone [...] Author + + + | Author | [facility] | + + + | Organization | [facility] | + + + | Address | Unknown | + + + | Phone | Unavailable | + + + Support + + + + + | Name | Relationship | Address | Phone | + + + + + | Heidy Martinez | ECON | [address] | | | | | [place] | | | | | [address] | | + + + + + Care Team Providers + +------+ + | Care Clay Burner Name | Role | Phone | + +------+ + | Brenda Hudson | PCP | | + +------+ + Reason for Visit + + + | Reason | Comments | + + + | Breast pain | [place] | + + + Encounter Details +--------+ + + + + | Date | Type | Department | Care Team | Description | +--------+ + + + + | 11/30/ | Telephone | [facility] | Angelina Magaña MD | Breast pain ([place] ) | | 2011 | | at [facility] [address] | [address] | | | | | [address] | [place], [place] | | | | | [place] | [address] | | | | | [place], [place] | [phone] | | | | | [address] | | | | | | [phone] | | | +--------+ + + + [...]
--- OUTSIDE RECORDS SUMMARY | ~2019-05-16 | XMS | Encounter Summary ---
Demographics + + + | Address | [address] | | | [place] [address] | + + + | Home Phone | | + + + | Preferred Language | Unknown | + + + | Marital Status | Single | + + + | Religion Affiliation | Unknown | + + + | Race | White | + + + | Ethnic Group | Not or | + + + Author + + + | Author | [facility] | + + + | Organization | [facility] | + + + | Address | Unknown | + + + | Phone | Unavailable | + + + Support + + + + + | Name | Relationship | Address | Phone | + + + + + | Heidy Martinez | ECON | [address] | | | | | [place] | | | | | [address] | | + + + + + Care Team Providers + +------+ + | Care Dross Skimmer Name | Role | Phone | + +------+ + | Brenda Hudson | PCP | | + +------+ + Reason for Visit + + + | Reason | Comments | + + + | Treatment Questions | questions about breast surgery | + + + Encounter Details +--------+ + + + + | Date | Type | Department | Care Team | Description | +--------+ + + + + | 03/31/ | Telephone | Surgical Oncology | Yumiko Mcfarlane, | Treatment Questions | | 2011 | | at [facility] [address] | [address] | (questions about | | | | [address] Mail Code: | [address] | breast surgery) | | | | [facility] | [place], [place] | | | | | and Healing, | [address] | | | | | [facility] | [phone] | | | | | [place], [place] | | | | | | [address] | | | | | | [phone] | | | +--------+ + + + [...]
--- OUTSIDE RECORDS SUMMARY | ~2019-05-16 | XMS | Encounter Summary ---
Demographics + + + | Address | [address] | | | [place] [address] | + + + | Home Phone | | + + + | Preferred Language | Unknown | + + + | Marital Status | Single | + + + | Worship Affiliation | Unknown | + + + | Race | White | + + + | Ethnic Group | Not or | + + + Author + + + | Author | [facility] | + + + | Organization | [facility] | + + + | Address | Unknown | + + + | Phone | Unavailable | + + + Support + + + + + | Name | Relationship | Address | Phone | + + + + + | Heidy Martinez | ECON | [address] | | | | | [place] | | | | | [address] | | + + + + + Care Team Providers + +------+ + | Care Water Hauler Name | Role | Phone | + +------+ + | Brenda Hudson | PCP | | + +------+ + Reason for Visit + + + | Reason | Comments | + + + | New patient | 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 | | consultation | | + + + Consultation (Routine) [...] | | | | | phyllodes | [facility] [address] | [address] | | | | | tumor Large | [address] | [address] | | | | | breasts | [facility] | [place], [place] | | | | | Mastodynia, | Rd | [address] | | | | | female | [place], [place] | Phone: | | | | | Procedures | [address] | [phone] | | | | | CONSULT TO | Phone: | Fax: | | | | | SURGERY - | [phone] | [phone] | | | | | PLASTICS | Fax: | | | | | | | [phone] | | + +--------+ + + + + Encounter Details +--------+---------+ + + + | Date | Type | Department | Care Team | Description | +--------+---------+ + + + | 01/13/ | Office | Plastic and | Janessa La, | Hypertrophy of | | 2011 | Visit | Reconstructive | [address] | breast (Primary Dx) | | | | Surgery at [facility] | [place], [place] | | | | | [address] | [address] | | | | | Mailcode: CH5 | [phone] | | | | | [facility] | | | | | | and Healing, | | | | | | [facility] [address], 5th | | | | | | Floor [place], [place] | | | | | | [address] | | | | | | [phone] | | | +--------+---------+ + + + [...] + + + | Blood Pressure | 124/68 | 01/14/2012 2:27 PM | | | | | PDT | | + + + + + | Pulse | 80 | 01/14/2012 2:27 PM | | | | | PDT | | + + + + + | Temperature | - | - | | + + + + + | Respiratory Rate | 14 | 01/14/2012 2:27 PM | | | | | PDT | | + + + + + | Oxygen Saturation | 98% | 01/14/2012 2:27 PM | | | | | PDT | | + + + + + | Inhaled Oxygen | - | - | | | Concentration | | | | + + + + + | Weight | 95.3 kg (210 lb) | 01/14/2012 2:27 PM | | | | | PDT | | + + + + + | Height | 165.1 cm (5' 5") | 01/14/2012 2:27 PM | | | | | PDT | | + + + + + | Body Mass Index | 34.95 | 01/14/2012 2:27 PM | | | | | PDT | | + + + + + documented in this encounter Progress Notes Janessa La MD - 01/14/2012 2:43 PM PDTFormatting of this note might be different fro m the original. BREAST RECONSTRUCTION CONSULT SUBJECTIVE History of Present Illness: Ella Weber is a 21 y.o. 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 Beto atment thus far includes excision of the tumor in September of this year. This was done in [facility]. She has developed chronic pain since that time which feels like constant deep aching . She takes ibuprophen daily and still requires occasional Leisenring for pain. No nodes taken - path benign. She is being seen by Dr. Magaña for wide excision. She describes large breast s since high school, she has chronic shoulder pain and back pain. She is unable to exercise and run - can't play softball because of pain. Has gained a lot of weight since appendecto my and ovarian cyst removal in June - up 30 pounds Current bra size: 34 H Desired cup size: DDD or F cup - concerned about being too small - she asked about implants Family history of breast disease: mother and her twin both recently diagnosed with breast c ancer - premenopausal Past Medical History Diagnosis Date HTN (hypertension) well contolled no meds Cervical cancer personal history tx with cone biopsy alone Past Surgical History Procedure Date section 2009 Ovarian cyst removal 2010 No Known Allergies Current Outpatient Prescriptions Medication Sig CETIRIZINE HCL (ZYRTEC ORAL) Take by mouth. HYDROCODONE BIT/ACETAMINOPHEN (NORCO ORAL) Take by mouth. Social history: Lives ion [place] with boyfriend and 2 year old son [...] but no excessive bleeding with prior surgeries. Positive for fatigue, legs swelling Living at home with patient: boyfriend PHYSICAL EXAM Vitals: BP 124/68 | Pulse 80 | RR 14 | Ht 165.1 cm (5' 5") | Wt 95.255 kg (210 lb) | SpO2 9 8% | BMI 34.95 kg/(m^2) General appearance: Well-developed and well-nourished adult female in no apparent distress. Neck: Supple without lymphadenopathy. Chest clear to auscultation CV - reg without murmurs Right Breast: Sternal notch to nipple distance: 31 cm Breast width: 18 cm Mid-line to nipple: 13 cm Ptosis: gr 3 - IMFN - 14 4 cm vertical scar outer lower quadrant Left Breast: Sternal notch to nipple distance: 31 cm Breast width: 18 cm Mid-line to nipple: 13.5 cm Ptosis: gr 3 - IMFN - 15 Palpation reveals no discrete masses bilaterally. There is no adenopathy or nipple discharg e. Assessment: Ella has large breasts which she is happy with despite her complaints of related sympto ms. Though she initially requested breast reduction, after extensive discussion with her I do not think that this is really what she wants. She is much more concerned about being unh appy with breasts that are too small and needing implants than she is about back, shoulder, neck pain, or her current breast size and shape. She has some chronic pain on the right of unclear etiology - this will not necessarily celeste ge after reexcision or breast reduction. She and Dr. Magaña have discussed the recommended margins after phylloides tumor excision and they are considering re-excision though this will likely be very difficult to accomplish at this time after her tumor excision. I have recommended no breast reduction now - she should f/u with Dr. Magaña and be considered for evaluation in the high risk clinic due to her significant family hx of breast cancer. She will f/u with prn documented in this encounter Plan of Treatment Not on filedocumented as of this encounter Visit Diagnoses + + | Diagnosis | + + | Hypertrophy of breast - Primary | + + documented in this encounter
--- OUTSIDE RECORDS SUMMARY | ~2019-05-16 | XMS | Clinical Summary ---
Demographics + + + | Address | [address] | | | [place] [address] | + + + | Home Phone [...] [place] | | | | | [address] | | + + + + + Care Team Providers + +------+ + | Care Shift Engineer Name | Role | Phone | + +------+ + PCP | Unavailable | + +------+ + Source Comments [facility] is fully live on both [facility] and [facility] InPatient.[facility] Allergies No Known Allergies Medications + + [...] | PHP | xxxxxxxxxxx | 07/20/19 | [phone] | [address] | PPO | | | [facility] | | [address] | [address] | | [address] | | sent | | [place], | | | | [place] | | | | [place] [address] | | + +--------+ +--------+ + +------+ + +--------+ +--------+ + + | Guarantor Name | Accoun | Relation to | Date | Phone | Billing Address | | | t Type | Patient | of | | | | | | | | | | + +--------+ +--------+ + + | Ella Weber | Person | Self [birth year] | [address] | | | al/Fam | | 1991 | [phone] | [place] [address] | | | olvin | | | 9 (Home) | | + +--------+ +--------+ + +
--- OUTSIDE RECORDS SUMMARY | ~2019-05-16 | XMS | Encounter Summary ---
Demographics + + + | Address | [address] | | | [place] [address] | + + + | Home Phone | | + + + | Preferred Language | Unknown | + + + | Marital Status | Single | + + + | Yazidism Affiliation | Unknown | + + + | Race | White | + + + | Ethnic Group | Not or | + + + Author + + + | Author | [facility] | + + + | Organization | [facility] | + + + | Address | Unknown | + + + | Phone | Unavailable | + + + Support + + + + + | Name | Relationship | Address | Phone | + + + + + | Heidy Martinez | ECON | [address] | | | | [place] | | | | | [address] | | + + + + + Care Team Providers + +------+ + | Care Digital Retoucher Name | Role | Phone | + +------+ + | Brenda Hudson | PCP | | + +------+ + Encounter Details +--------+ + + + + | Date | Type | Department | Care Team | Description | +--------+ + + + + | 04/05/ | Programmer Developer | Surgical Oncology | Yumiko Mcfarlane, | Benign phyllodes | | 2011 | | at [facility] [address] | [address] | tumor of breast | | | | Alan Garnica Mail Code: | [address] | | | | | [facility] | [place], [place] | | | | | and Healing, | [address] | | | | | Building [address] | [phone] | | | | | [place], [place] | | | | | | [address] | | | | | | [phone] | | | +--------+ + + + [...] | + +--------+ + + + | MA DIAGNOSTIC MAMMO | Routin | 04/08/2012 | | Results for this | | BILAT W/CAD | e | 3:31 PM | | procedure are in the | | | | PDT | | results section. | + +--------+ + + + documented in this encounter Results MA DIAGNOSTIC MAMMO BILAT W/CAD (04/08/2012 3:31 PM PDT) + + + + + + | Component | Value | Ref Range | Performed | Pathologist | | | | | At | Signature | + + + + + + | MA | Patient History:Prior | | | | | DIAGNOSTIC | resection of right | | | | | MAMMO BILAT | breast phyllodes tumor, | | | | | W/CAD | question ofresidual | | | | | | tumor or distortion at | | | | | | the surgical | | | | | | site.Patient has history | | | | | | of high-risk lesion on | | | | | | a previous biopsy atage | | | | | | 20.High risk | | | | | | ultrasound-guided core | | | | | | biopsy of the right | | | | | | breast,August 26, | | | | | | 2011.Reason for exam: | | | | | | clinical finding. 217 | | | | | | Benign neoplasm of | | | | | | breastReason for | | | | | | Exam/Referral | | | | | | Diagnosis?->H/O right | | | | | | breast phyllodesexcised | | | | | | 08/2011 with close | | | | | | surgical margins in need | | | | | | ofre-excision. Please | | | | | | eval lumpectomy bed for | | | | | | identifiable | | | | | | surgicalcavity US BREAST | | | | | | RIGHT: April 08, | | | | | | 2011 - Accession #: | | | | | | [id number] study | | | | | | comparison: December 17, | | | | | | 2011, MAMMS OUTSIDE | | | | | | FILMS.Ultrasound of the | | | | | | right breast shows no | | | | | | suspicious masses | | | | | | orarchitectural | | | | | | distortion. There is no | | | | | | seroma, distortion, | | | | | | mass,or other | | | | | | sonographic abnormality | | | | | | at the site of prior | | | | | | resection. MA DIGITAL | | | | | | MAMMO DIAG BILAT W/CAD: | | | | | | April 08, 2012 - | | | | | | Accession#: | | | | | | [id number] CC and | | | | | | MLO view(s) were | | | | | | taken.The breast tissue | | | | | | is heterogeneously | | | | | | dense. This may lower | | | | | | thesensitivity of | | | | | | mammography. No | | | | | | suspicious | | | | | | calcifications,masses, | | | | | | or architectural | | | | | | distortion present. The | | | | | | images were obtained | | | | | | using full field digital | | | | | | mammography onthe | | | | | | dedicated Hologic System | | | | | | with R2 CAD. Performed | | | | | | at [facility] and | | | | | | [facility]. | | | | | | ASSESSMENT: Negative - | | | | | | Category 1 | | | | | | RECOMMENDATION:Treatment | | | | | | plan of the right | | | | | | breast per Dr. | | | | | | Gómez.Routine screening | | | | | | mammogram at age 40. | | | | | | Attending Radiologists: | | | | | | MELBA NO M.D.Author: | | | | | | Abbie Restrepo I have | | | | | | personally viewed this | | | | | | procedure/exam, reviewed | | | | | | this report,and made | | | | | | changes to it where | | | | | | appropriate. | | | | | | Final/Electronically | | | | | | sparkle / MELBA NO | | | | | | 04/08/2012 15:53 PM | | | | + + + + + + + + | Specimen | + + | | + + + +---------+ + + | Performing | Address | City/State/Zipcode | Phone Number | | Organization | | | | + +---------+ + + | [facility] DEPARTMENT OF | | | | | RADIOLOGY | | | | + +---------+ + + US BREAST RIGHT (04/08/2012 2:54 PM PDT) + + + + + + | Component | Value | Ref Range | Performed | Pathologist | | | | | At | Signature | + + + + + + | US BREAST | Patient History:Prior | | | | | RIGHT | resection of right | | | | | | breast phyllodes tumor, | | | | | | question ofresidual | | | | | | tumor or distortion at | | | | | | the surgical | | | | | | site.Patient has history | | | | | | of high-risk lesion on | | | | | | a previous biopsy atage | | | | | | .High risk | | | | | | ultrasound-guided core | | | | | | biopsy of the right | | | | | | breast,August 26, | | | | | | 2011.Reason for exam: | | | | | | clinical finding. 217 | | | | | | Benign neoplasm of | | | | | | breastReason for | | | | | | Exam/Referral | | | | | | Diagnosis?->H/O right | | | | | | breast phyllodesexcised | | | | | | 08/2011 with close | | | | | | surgical margins in need | | | | | | ofre-excision. Please | | | | | | eval lumpectomy bed for | | | | | | identifiable | | | | | | surgicalcavity US BREAST | | | | | | RIGHT: April 08, | | | | | | 2011 - Accession #: | | | | | | [id number] study | | | | | | comparison: December 17, | | | | | | 2011, MAMMS OUTSIDE | | | | | | FILMS.Ultrasound of the | | | | | | right breast shows no | | | | | | suspicious masses | | | | | | orarchitectural | | | | | | distortion. There is no | | | | | | seroma, distortion, | | | | | | mass,or other | | | | | | sonographic abnormality | | | | | | at the site of prior | | | | | | resection. MA DIGITAL | | | | | | MAMMO DIAG BILAT W/CAD: | | | | | | April 08, 2012 - | | | | | | Accession#: | | | | | | [id number] CC and | | | | | | MLO view(s) were | | | | | | taken.The breast tissue | | | | | | is heterogeneously | | | | | | dense. This may lower | | | | | | thesensitivity of | | | | | | mammography. No | | | | | | suspicious | | | | | | calcifications,masses, | | | | | | or architectural | | | | | | distortion present. The | | | | | | images were obtained | | | | | | using full field digital | | | | | | mammography onthe | | | | | | dedicated Hologic System | | | | | | with R2 CAD. Performed | | | | | | at [facility] and | | | | | | [facility]. | | | | | | ASSESSMENT: Negative - | | | | | | Category 1 | | | | | | RECOMMENDATION:Treatment | | | | | | plan of the right | | | | | | breast per Dr. | | | | | | Gómez.Routine screening | | | | | | mammogram at age 40. | | | | | | Attending Radiologists: | | | | | | MELBA NO M.D.Author: | | | | | | Abbie Restrepo I have | | | | | | personally viewed this | | | | | | procedure/exam, reviewed | | | | | | this report,and made | | | | | | changes to it where | | | | | | appropriate. | | | | | | Final/Electronically | | | | | | signed / MELBA NO | | | | | | 04/08/2012 15:53 PM | | | | + + + + + + + + | Specimen | + + | | + + + +---------+ + + | Performing | Address | City/State/Zipcode | Phone Number | | Organization | | | | + +---------+ + + | [facility] DEPARTMENT OF | | | | | RADIOLOGY | | | | + +---------+ + + documented in this encounter Visit Diagnoses + + | Diagnosis | + + | Benign phyllodes tumor of breast Benign neoplasm of breast | + + documented in this encounter"
--- OUTSIDE RECORDS SUMMARY | ~2019-05-16 | XMS | Encounter Summary ---
Demographics + + + | Address | [address] | | | [place] [address] | + + + | Home Phone | | + + + | Preferred Language | Unknown | + + + | Marital Status | Single | + + + | Hinduism Affiliation | Unknown | + + + | Race | White | + + + | Ethnic Group | Not or | + + + Author + + + | Author | [facility] | + + + | Organization | [facility] | + + + | Address | Unknown | + + + | Phone | Unavailable | + + + Support + + + + + | Name | Relationship | Address | Phone | + + + + + | Heidy Martinez | ECON | [address] | | | | [place] | | | | | [address] | | + + + + + Care Team Providers + +------+ + | Care Equipment Maintenance Technician Name | Role | Phone | + +------+ + | Brenda Hudson | PCP | | + +------+ + Encounter Details +--------+ + + + + | Date | Type | Department | Care Team | Description | +--------+ + + + + | 12/17/ | Hospital | Women's Imaging | | | | 2011 | Encounter | [facility] at [facility] [address] | | | | | | [address] | | | | | | [address] [place] | | | | | | [place] | | | | | | [place] | | | | | | [address] | | | | | | [phone] | | | +--------+ + + + [...] | + +--------+ + + + | MAMMS OUTSIDE FILMS | Routin | 12/18/2011 | | Results for this | | | e | 8:24 AM | | procedure are in the | | | | PDT | | results section. | + +--------+ + + + documented in this encounter Results MAMMS OUTSIDE FILMS (12/18/2011 8:24 AM PDT) + + + + + + | Component | Value | Ref Range | Performed | Pathologist | | | | | At | Signature | + + + + + + | MAMMS | Patient History:Patient | | | | | OUTSIDE | has history of high-risk | | | | | FILMS | lesion on a previous | | | | | | biopsy atage 20.High | | | | | | risk ultrasound-guided | | | | | | core biopsy of the right | | | | | | breast,August 26, | | | | | | 2011.Reason for exam: | | | | | | review of outside study. | | | | | | 2 nd opinion | | | | | [facility] [place] | | | | | | lumpectomy, slides here | | | | | | and films here MAMMS | | | | | | OUTSIDE FILMS: December 17, | | | | | | 2011 - Accession #: | | | | | | [id number] study | | | | | | comparison: November 26, | | | | | | 2011, US BREAST RIGHT, | | | | | | performedat an outside | | | | | | facility. August 21, | | | | | | 2011, US BREAST | | | | | | RIGHT,performed at an | | | | | | outside facility.The | | | | | | following is an | | | | | | interpretation of | | | | | | outside imaging studies: | | | | | | The patient underwent a | | | | | | diagnostic right breast | | | | | | ultrasound for | | | | | | apalpable finding on | | | | | | 08/21/11. The ultrasound | | | | | | revealed a | | | | | | lobulated,hypoechoic | | | | | | mass with circumscribed | | | | | | margins located at | | | | | | thepalpable area of | | | | | | interest (8:00) | | | | | | measuring 3.6 x 1.9 x | | | | | | 1.7 cm.This 8:00 right | | | | | | breast mass underwent | | | | | | ultrasound guided | | | | | | coreneedle biopsy on | | | | | | 08/26/11. The patient | | | | | | returned for | | | | | | anotherdiagnostic right | | | | | | breast ultrasound on | | | | | | 11/27/11 following | | | | | | surgicalremoval of the | | | | | | mass revealing some | | | | | | areas of | | | | | | postsurgicaldistortion | | | | | | with no mass identified. | | | | | | ASSESSMENT: Benign - | | | | | | Category 2The patient's | | | | | | right breast mass has | | | | | | been surgically removed | | | | | | andwas shown to be | | | | | | phyllodes tumor on | | | | | | pathology. | | | | | | Postsurgicalultrasound | | | | | | showed no residual | | | | | | mass. | | | | | | RECOMMENDATION:Treatment | | | | | | plan of the right | | | | | | breast per Dr Magaña. | | | | | | Attending Radiologists: | | | | | | Yesenia Bright M.D.Author: | | | | | | Jose Alfredo Wang M.D. I | | | | | | have personally viewed | | | | | | this procedure/exam, | | | | | | reviewed this report,and | | | | | | made changes to it | | | | | | where appropriate. | | | | | | Final/Electronically | | | | | | signed / Yesenia Bright | | | | | | 12/18/2011 13:27 PM | | | | + + + + + + + + | Specimen | + + | | + + + +---------+ + + | Performing | Address | City/State/Zipcode | Phone Number | | Organization | | | | + +---------+ + + | [place] DEPARTMENT OF | | | | | RADIOLOGY | | | | + +---------+ + + documented in this encounter Visit Diagnoses Not on filedocumented in this encounter"
--- OUTSIDE RECORDS SUMMARY | ~2019-05-16 | XMS | Encounter Summary ---
Demographics + + + | Address | [address] | | | [place] [address] | + + + | Home Phone | | + + + | Preferred Language | Unknown | + + + | Marital Status | Single | + + + | Faith Affiliation | Unknown | + + + | Race | White | + + + | Ethnic Group | Not or | + + + Author + + + | Author | [facility] | + + + | Organization | [facility] | + + + | Address | Unknown | + + + | Phone | Unavailable | + + + Support + + + + + | Name | Relationship | Address | Phone | + + + + + | Heidy Martinez | ECON | [address] | | | | | [place] | | | | | [address] | | + + + + + Care Team Providers + +------+ + | Care Line Installer Name | Role | Phone | + [...] [address] | | | | | | [place], [place] | | | | | | [address] | | | +--------+ + + + [...]
--- OUTSIDE RECORDS SUMMARY | ~2019-05-16 | XMS | Encounter Summary ---
Demographics + + + | Address | [address] | | | [place] [address] | + + + | Home Phone | | + + + | Preferred Language | Unknown | + + + | Marital Status | Single | + + + | Church Affiliation | Unknown | + + + | Race | White | + + + | Ethnic Group | Not or | + + + Author + + + | Author | [facility] | + + + | Organization | [facility] | + + + | Address | Unknown | + + + | Phone | Unavailable | + + + Support + + + + + | Name | Relationship | Address | Phone | + + + + + | Heidy Martinez | ECON | [address] | | | | | [place] | | | | | [address] | | + + + + + Care Team Providers + +------+ + | Care Water/Wastewater Engineer Name | Role | Phone | + +------+ + | Brenda Hudson | PCP | | + +------+ + Encounter Details +--------+ + + + + | Date | Type | Department | Care Team | Description | +--------+ + + + + | 04/08/ | Hospital | Women's Imaging | | | | 2011 | Encounter | Center [facility] [address] | | | | | | [address] | | | | | | [address] | | | | | | [place], [place] | | | | | | [address] | | | | | | [phone] | | | +--------+ + + + [...] + + documented as of this encounter Medications at Time of Discharge + + + +---------+--------+ + | Medication | Sig | Dispensed | Refills | Start | End Date | | | | | | Date | | + + + +---------+--------+ + | CETIRIZINE HCL | Take by mouth. | | 0 | | | | (ZYRTEC ORAL) | | | | | | + + + +---------+--------+ + | MELATONIN ORAL | Take by mouth once | | 0 | | | | | daily at bedtime. | | | | | + + + +---------+--------+ + documented as of this encounter Plan of Treatment Not on filedocumented as of this encounter Procedures + +--------+ + + + | Procedure Name | Priori | Date/Time | Associated Diagnosis | Comments | | | ty | | | | + +--------+ + + + | US BREAST RIGHT | Routin | 04/08/2012 | Benign phyllodes | Results for this | | | e | 2:54 PM | tumor of breast | procedure are in the | | | | PDT | | results section. | + +--------+ + + + documented in this encounter Results US BREAST RIGHT (04/08/2012 2:54 PM PDT) [...] #: | | | | | | [id number] study | | | | | | [...] Accession#: | | | | | | [id number] CC and | | | | | [...] | | | | | | dedicated [employer] [facility] | | | | | | with R2 CAD. Performed | | | | | | at [facility] and | | | | | | [facility]. 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
--- OUTSIDE RECORDS SUMMARY | ~2019-05-16 | XMS | Encounter Summary ---
Demographics + + + | Address | [address] | | | [place] [address] | + + + | Home Phone | | + + + | Preferred Language | Unknown | + + + | Marital Status | Single | + + + | Advent Affiliation | Unknown | + + + [...] [place] | | | | | [address] | | + + + + + Care Team Providers + +------+ + | Care Electrical Assistant Name | Role | Phone | + +------+ + | Brenda Hudson | PCP | | + +------+ + Encounter Details +--------+ + + + + | Date | Type | Department | Care Team | Description | +--------+ + + + + | 04/08/ | Hospital | Women's Imaging | | | | 2011 | Encounter | Center at [address] | | | | | | [address] | | | | | | [address] | | | | | | [place], [place] | | | | | | [address] | | | | | | [phone] | | | +--------+ + + + [...] #: | | | | | | [id number] study | | | | | | [...] Accession#: | | | | | | [id number] CC and | | | | | [...] | | | | | | dedicated [employer] [facility] | | | | | | with R2 CAD. Performed | | | | | | at [facility] and | | | | | | [facility]. 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
--- OUTSIDE RECORDS SUMMARY | ~2019-05-16 | XMS | Encounter Summary ---
Demographics + + + | Address | [address] | | | [place] [address] | + + + | Home Phone | | + + + | Preferred Language | Unknown | + + + | Marital Status | Single | + + + | Scientologist Affiliation | Unknown | + + + | Race | White | + + + | Ethnic Group | Not or | + + + Author + + + | Author | [facility] | + + + | Organization | [facility] | + + + | Address | Unknown | + + + | Phone | Unavailable | + + + Support + + + + + | Name | Relationship | Address | Phone | + + + + + | Heidy Martinez | ECON | [address] | | | | | [place] | | | | | [address] | | + + + + + Care Team Providers + +------+ + | Care Digital Media Manager Name | Role | Phone | [...] | | | | | phyllodes | DAIRY FEED MIXING OPERATOR [address] | [address] | | | | | tumor Large | [address] | [address] | | | | | breasts | [facility] | [place], [place] | | | | | Mastodynia, | Rd | [address] | | | | | female | [place], [place] | Phone: | | | | | Procedures | [address] | [phone] | | | | | CONSULT TO | Phone: | Fax: | | | | | SURGERY - | [phone] | [phone] | | | | | PLASTICS | Fax: | | | | | | | [phone] | | + +--------+ + + + [...] Dx) | | | | Surgery at [facility] | [place], [place] | | | | | [address] | [address] | | | | | Mailcode: CH5 | [phone] | | | | | [facility] | | | | | | and Healing, | | | | | | [facility] [address], [address]th | | | | | | Floor [place], [place] | | | | | | [address] | | | | | | [phone] | | | +--------+---------+ + + + [...] of this year. This was done in [facility]. She has developed chronic pain since that time which feels like constant deep aching . She takes ibuprophen daily and still requires occasional [place] for pain. No nodes taken - path [...] Take by mouth. Social history: Lives ion [place] with boyfriend and 2 year old son [...]
--- OUTSIDE RECORDS SUMMARY | ~2019-05-16 | XMS | Encounter Summary ---
Demographics + + + | Address | [address] | | | [place] [address] | + + + | Home Phone | | + + + | Preferred Language | Unknown | + + + | Marital Status | Single | + + + | Hoahaoism Affiliation | Unknown | + + + | Race | White | + + + | Ethnic Group | Not or | + + + Author + + + | Author | [facility] | + + + | Organization | [facility] | + + + | Address | Unknown | + + + | Phone | Unavailable | + + + Support + + + + + | Name | Relationship | Address | Phone | + + + + + | Heidy Martinez | ECON | [address] | | | | [place] | | | | | [address] | | + + + + + Care Team Providers + +------+ + | Care Tray Casting Machine Operator Name | Role | Phone | [...] | Authorized | | Surgical | | Hudson, | Gómez, | | | | Oncology | | Brenda Tran, | MD Angelina | | | | | | [place] | [address] | | | | | | [place] | Ave | | | | | | FAMILY | | | | | | | MEDICINE P | [address] | | | | | | [address] | Phone: | | | | | | [place], | [phone] | | | | | | [place] [address] | Fax: | | | | | | Phone: | [phone] | | | | | | [phone] | | | | | | | Fax: | | | | | | | [phone] | | + +--------+ + + + + Encounter Details +--------+---------+ + + + | Date | Type | Department | Care Team | Description | +--------+---------+ + + + | 04/08/ | Office | [facility] | Angelina Magaña MD | Benign phyllodes | | 2011 | Visit | [address] | [address] | tumor of breast | | | | Mailcode: CH7A | [place], [place] | (Primary Dx) | | | | [facility] | [address] | | | | | and [place], | [phone] | | | | | [facility] | | | | | | Floor [place], [place] | | | | | | [address] | | | | | | [phone] | | | +--------+---------+ + + + [...] encounter Progress Notes Angelina Magaña MD - 04/14/2012 8:49 PM PDTFormatting of this note might be different from t he original. BREAST CLINIC PROGRESS NOTE 04/08/2012 SUBJECTIVE: Ella is here today for a clinical follow-up to re-discuss surgery. Overall, she states that she is doing well and has no new breast complaints such as masses, nipple d ischarge, skin changes, or adenopathy. She also denies any new constitutional symptoms such as headache, fever, weight loss, or fatigue. Since her last visit with me, she had a consul t with Dr. La to discuss bilateral breast reduction. Since then, she feels she would lik e to have a breast reduction and have a right breast re-excision at the same time. PAST MEDICAL/SURGICAL HISTORY: Past Medical History Diagnosis Date HTN (hypertension) well contolled no meds Cervical cancer personal history tx with cone biopsy alone Past Surgical History Procedure Date section 2009 Ovarian cyst removal 2010 Appendectomy 2010 Breast lumpectomy 2011 right phylloides tumor MEDICATIONS: Current outpatient prescriptions:CETIRIZINE HCL (ZYRTEC ORAL), Take by mouth. , Disp: , R fl: MELATONIN ORAL, Take by mouth once daily at bedtime. , Disp: , Rfl: ALLERGIES: No Known Allergies REVIEW OF SYSTEMS: Patient denies any new constitutional symptoms. ROS was negative for all other symptoms: [...] Vital signs: Visit Vitals Item Reading BP 117/71 Pulse 70 Temp (Src) 36.7 C (98 F) (Oral) RR 14 Wt 95.618 kg (210 lb 12.8 oz) SpO2 99% Physical Exam: General: Well-developed, well-nourished female in no apparent distress. Alert and oriented x 3. HEENT: Normocephalic, atraumatic. Sclerae anicteric. Neck: No palpable masses. No cervical or clavicular adenopathy. Lungs: CTAB Heart: RRR, no m/r/g Abdomen: Soft, nontender, nondistended. No palpable masses. Extremities: No cyanosis, clubbing, or edema. No lymphedema. Breast: A multipositional, bilateral breast exam was performed. Right breast: well-healed l ower outer quadrant scar; no palpable dominant masses, no nipple discharge, no skin changes. Right axilla: no palpable adenopathy. Left breast: no palpable dominant masses, no nipple d ischarge, no skin changes. Left axilla: no palpable adenopathy. DATA: MAMMOGRAM: MA DIAGNOSTIC MAMMO BILAT W/CAD (no units) Date Value Range Status 04/08/2012 Final Value: Patient History: Prior resection of right breast phyllodes tumor, question of residual tumor or distortion at the surgical site. Patient has history of high-risk lesion on a previous biopsy at age 20. High risk ultrasound-guided core biopsy of the right breast, August 26, 2011. Reason for exam: clinical finding. 217 Benign neoplasm of breast Reason for Exam/Referral Diagnosis?->H/O right breast phyllodes excised 08/2011 with close surgical margins in need of re-excision. Please eval lumpectomy bed for identifiable surgical cavity US BREAST RIGHT: April 08, 2012 - Prior study comparison: December 18, 2011, MAMMS OUTSIDE FILMS. Ultrasound of the right breast shows no suspicious masses or architectural distortion. There is no seroma, distortion, mass, or other sonographic abnormality at the site of prior resection. MA DIGITAL MAMMO DIAG BILAT W/CAD: April 08, 2012 - Bilateral CC and MLO view(s) were taken. The breast tissue is heterogeneously dense. This may lower the sensitivity of mammography. No suspicious calcifications, masses, or architectural distortion present. The images were obtained using full field digital mammography on the dedicated [employer] System with R2 CAD. Performed at [facility]. ASSESSMENT: Negative - Category 1 RECOMMENDATION: Treatment plan of the right breast per Dr. Magaña. Routine screening mammogram at age 40. Attending Radiologists: MELBA NO M.D. Author: Abbie Restrepo, I have personally viewed this procedure/exam, reviewed this report, and made changes to it where appropriate. Final/Electronically signed / MELBA NO 04/08/2012 15:53 PM ASSESSMENT: Ella is here today for a clinical follow-up visit for her right breast phyl lodes tumor. Overall, she is doing well and has no new complaints. Both clinical breast exa m and breast imaging today do not show any evidence of any suspicious lesions. Also, today's breast imaging with both mammogram and ultrasound shows no identifiable scar or seroma to s erve as a target for wire localization to attempt to re-indentify the original surgical cavi ty for a possible re-excision. I explained to the patient that at this point, given that she has waited up to this point to proceed with surgery, the prior surgical cavity has fully co llapsed, and a re-excision may be somewhat "blind". At this time, only the superficial scar would serve as an approximate guide for locating tissue for re-excision. If she is planning to have a breast reduction, then the breast tissue in the lower outer quadrant near the scar could be targeted for removal. The patient expressed that she understood these risks. She f eels she would still like to pursue this surgery. A PARQ session was held, additional questions with discussion were completed. This procedur e has been fully reviewed with the patient, and written informed consent has been obtained. I personally took the history and physical of the patient. PLAN: 1. To meet with Dr. La in plastic surgery to confirm plan. 2. Plan for right breast re-excision lumpectomy, to be coordinated with bilateral breast re duction. I would like to thank AMANDO Richard for allowing me to participate in the care of this pleasant patient. docume nted in this encounter Plan of Treatment Not on filedocumented as of this encounter Visit Diagnoses + + | Diagnosis | + + | Benign phyllodes tumor of breast - Primary Benign neoplasm of breast | + + documented in this encounter
--- OUTSIDE RECORDS SUMMARY | ~2019-05-16 | XMS | Encounter Summary ---
Demographics + + + | Address | [address] | | | [place] [address] | + + + | Home Phone | | + + + | Preferred Language | Unknown | + + + | Marital Status | Single | + + + | Jew Affiliation | Unknown | + + + | Race | White | + + + | Ethnic Group | Not or | + + + Author + + + | Author | [facility] | + + + | Organization | [facility] | + + + | Address | Unknown | + + + | Phone | Unavailable | + + + Support + + + + + | Name | Relationship | Address | Phone | + + + + + | Heidy Martinez | ECON | [address] | | | | | [place] | | | | | [address] | | + + + + + Care Team Providers + +------+ + | Care Datastage Developer Name | Role | Phone | + +------+ + | Brenda Hudson | PCP | | + +------+ + Encounter Details +--------+ + + + + | Date | Type | Department | Care Team | Description | +--------+ + + + + | 04/05/ | Burn Out Scarfing Operator | Surgical Oncology | Yumiko Mcfarlane, | Benign phyllodes | | 2011 | | at [facility] [address] | INORGANIC CHEMIST [address] | tumor of breast | | | | Alan Garnica Mail Code: | [address] | | | | | [place] for [facility] | [place], [place] | | | | | and Healing, | [address] | | | | | Building [address] | [phone] | | | | | [place], [place] | | | | | | [address] | | | | | | [phone] | | | +--------+ + + + [...] #: | | | | | | [id number] study | | | | | | [...] Accession#: | | | | | | [id number] CC and | | | | | [...] | | | | | | at [facility] and | | | | | | [facility]. | | | | | | [...] | | + +---------+ + + | [facility] DEPARTMENT OF | | | | [...] #: | | | | | | [id number] study | | | | | | [...] Accession#: | | | | | | [id number] CC and | | | | | [...] | | | | | | at [facility] and | | | | | | [facility]. 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
--- OUTSIDE RECORDS SUMMARY | ~2019-05-16 | XMS | Encounter Summary ---
Demographics + + + | Address | [address] | | | [place] [address] | + + + | Home Phone | | + + + | Preferred Language | Unknown | + + + | Marital Status | Single | + + + | Catholic Affiliation | Unknown | + + + | Race | White | + + + | Ethnic Group | Not or | + + + Author + + + | Author | [facility] | + + + | Organization | [facility] | + + + | Address | Unknown | + + + | Phone | Unavailable | + + + Support + + + + + | Name | Relationship | Address | Phone | + + + + + | Heidy Martinez | ECON | [address] | | | | | [place] | | | | | [address] | | + + + + + Care Team Providers + +------+ + | Care Brand Advisor Name | Role | Phone | + [...] | | | | | tumor | RESEARCH NEUROPSYCHOLOGIST [address] | [address] | | | | | Procedures | [address] | Ave | | | | | REQUEST TO | [facility] | [place], [place] | | | | | SURGERY | Rd | [address] | | | | | ACCESS RN | [place], [place] | Phone: | | | | | | [address] | [phone] | | | | | | Phone: | Fax: | | | | | | [phone] | [phone] | | | | | | Fax: | | | | | | | [phone] | | +--------+--------+ + + + + [...] | 2011 | Orders | at [facility] [address] | RESEARCH NEUROPSYCHOLOGIST [address] | | | | | Alan Garnica Mail Code: | [address] | | | | | [facility] | [place], [place] | | | | | and Healing, | [address] | | | | | [place] [address] | [phone] | | | | | [place], [place] | | | | | | [address] | | | | | | [phone] | | | +--------+ + + + [...]
--- OUTSIDE RECORDS SUMMARY | ~2019-05-16 | XMS | Encounter Summary ---
Demographics + + + | Address | [address] | | | [place] [address] | + + + | Home Phone | | + + + | Preferred Language | Unknown | + + + | Marital Status | Single | + + + | Buddhist Affiliation | Unknown | + + + [...] [place] | | | | | [address] | | + + + + + Care Team Providers + +------+ + | Care Information Security Engineer Name | Role | Phone | [...] Questions | | 2011 | | at [facility] [address] | VISITING PROFESSOR [address] | (questions about | | | | [address] Mail Code: | [address] | breast surgery) | | | | [facility] | [place], [place] | | | | | and Healing, | [address] | | | | | [facility] | [phone] | | | | | [place], [place] | | | | | | [address] | | | | | | [phone] | | | +--------+ + + + [...]
--- OUTSIDE RECORDS SUMMARY | ~2019-05-16 | XMS | Encounter Summary ---
Demographics + + + | Address | [address] | | | [place] [address] | + + + | Home Phone | | + + + | Preferred Language | Unknown | + + + | Marital Status | Single | + + + | Nondenominational Affiliation | Unknown | + + + | Race | White | + + + | Ethnic Group | Not or | + + + Author + + + | Author | [facility] | + + + | Organization | [facility] | + + + | Address | Unknown | + + + | Phone | Unavailable | + + + Support + + + + + | Name | Relationship | Address | Phone | + + + + + | Heidy Martinez | ECON | [address] | | | | | [place] | | | | | [address] | | + + + + + Care Team Providers + +------+ + | Care Gas Cutter Name | Role | Phone | + +------+ + | Brenda Hudson | PCP | | + +------+ + Encounter Details +--------+ + + + + | Date | Type | Department | Care Team | Description | +--------+ + + + + | 09/18/ | Casino Attendant | [facility] | Angelina Magaña MD | Breast lump (Primary | | 2011 | | at [facility] [address] | [address] | Dx) | | | | [address] | [place], [place] | | | | | Mailcode: L223A | [address] | | | | | [place] | [phone] | | | | | [place], [place] | | | | | | [address] | | | | | | [phone] | | | +--------+ + + + [...] Alvarez | | | | | | [facility], | | | | | | , [place], | | | | | | Aaron Accession | | | | | | Number: [id number] | | | | | | Collection [...] biopsy | | | | | | ([id number], 08/26/11): | | | | | | [...] and | | | | | | health management consultant's diagnosis | | | | | [...] | | | | Stacy Moralez at [place]. | | | | | | The patient is | | | | | | nowbeing seen at [facility]'s | | | | | | Breast [...] | + + + + + | [facility] | [address] | [place] [address] | | | PATHOLOGY | [address] | | | + + + + + documented in this encounter Visit Diagnoses + + | Diagnosis | + + | Breast lump - Primary Lump or mass in breast | + + documented in this encounter"
--- OUTSIDE RECORDS SUMMARY | ~2019-05-16 | XMS | Encounter Summary ---
Demographics + + + | Address | [address] | | | [place] [address] | + + + | Home Phone | | + + + | Preferred Language | Unknown | + + + | Marital Status | Single | + + + | Sikh Affiliation | Unknown | + + + | Race | White | + + + | Ethnic Group | Not or | + + + Author + + + | Author | [facility] | + + + | Organization | [facility] | + + + | Address | Unknown | + + + | Phone | Unavailable | + + + Support + + + + + | Name | Relationship | Address | Phone | + + + + + | Heidy Martinez | ECON | [address] | | | | | [place] | | | | | [address] | | + + + + + Care Team Providers + +------+ + | Care Copier Repair Technician Name | Role | Phone | + +------+ + | Brenda Hudson | PCP | | + +------+ + Encounter Details +--------+ + + + + | Date | Type | Department | Care Team | Description | +--------+ + + + + | 09/18/ | Chain Builder Loom Control | [facility] | Angelina Magaña MD | | | 2011 | | [address] | [address] | | | | | Mailcode: CH7A | [place], [place] | | | | | [facility] | [address] | | | | | and Healing, | [phone] | | | | | [address] | | | | | | Floor [place], [place] | | | | | | [address] | | | | | | [phone] | | | +--------+ + + + [...]
--- OUTSIDE RECORDS SUMMARY | ~2019-05-16 | XMS | Encounter Summary ---
Demographics + + + | Address | [address] | | | [place] [address] | + + + | Home Phone | | + + + | Preferred Language | Unknown | + + + | Marital Status | Single | + + + | Mormonism Affiliation | Unknown | + + + | Race | White | + + + | Ethnic Group | Not or | + + + Author + + + | Author | [facility] | + + + | Organization | [facility] | + + + | Address | Unknown | + + + | Phone | Unavailable | + + + Support + + + + + | Name | Relationship | Address | Phone | + + + + + | Heidy Martinez | ECON | [address] | | | | | [place] | | | | | [address] | | + + + + + Care Team Providers + +------+ + | Care Agile Project Manager Name | Role | Phone [...] [address] | | | | | | [place], [place] | | | | | | [address] | | | +--------+ + + + [...]
--- OUTSIDE RECORDS SUMMARY | ~2019-05-16 | XMS | Encounter Summary ---
Demographics + + + | Address | [address] | | | [place] [address] | + + + | Home Phone | | + + + | Preferred Language | Unknown | + + + | Marital Status | Single | + + + | Oriental Orthodox Affiliation | Unknown | + + + | Race | White | + + + | Ethnic Group | Not or | + + + Author + + + | Author | [facility] | + + + | Organization | [facility] | + + + | Address | Unknown | + + + | Phone | Unavailable | + + + Support + + + + + | Name | Relationship | Address | Phone | + + + + + | Heidy Martinez | ECON | [address] | | | | [place] | | | | | [phone] | | + + + + + Care Team Providers + +------+ + | Care Hydrologic Modeler Name | Role | Phone | + +------+ + | Brenda Hudson | PCP | | + +------+ + Reason for Visit + + + | Reason | Comments | + + + | New patient | | | consultation | | + + [...] Oncology | | Brenda Tran, | MD Hector | | | | | | PA | [address] | | | | | | [place] | [address] | | | | | | FAMILY | [place], [place] | | | | | | MEDICINE P | [address] | | | | | | [address] | Phone: | | | | | | [place], | [phone] | | | | | | [place] [address] | Fax: | | | | | | Phone: | [phone] | | | | | | [phone] | | | | | | | Fax: | | | | | | | [phone] | | + +--------+ + + + + Encounter Details +--------+---------+ + + + | Date | Type | Department | Care Team | Description | +--------+---------+ + + + | 09/28/ | Office | [facility] | Hector Magaña MD | Lump or mass in | | 2011 | Visit | at [facility] [address] | [address] | breast (Primary Dx) | | | | [address] | [place], [place] | | | | | Mailcode: L223A | [address] | | | | | [place] | [phone] | | | | | [place], [place] | | | | | | [address] | | | | | | [phone] | | | +--------+---------+ + + + [...] + + + | Blood Pressure | 111/67 | 09/29/2011 1:19 PM | | | | | PDT | | + + + + + | Pulse | 77 | 09/29/2011 1:19 PM | | | | | PDT | | + + + + + | Temperature | 36.5 C (97.7 F) | 09/29/2011 1:19 PM | | | | | PDT | | + + + + + | Respiratory Rate | 14 | 09/29/2011 1:19 PM | | | | | PDT | | + + + + + | Oxygen Saturation | 100% | 09/29/2011 1:19 PM | | | | | PDT | | + + + + + | Inhaled Oxygen | - | - | | | Concentration | | | | + + + + + | Weight | 91.4 kg (201 lb 6.4 | 09/29/2011 1:19 PM | | | | oz) | PDT | | + + + + + | Height | 166 cm (5' 5.35") | 09/29/2011 1:19 PM | | | | | PDT | | + + + + + | Body Mass Index | 33.15 | 09/29/2011 1:19 PM | | | | | PDT | | + + + + + documented in this encounter Progress Notes Hector Magaña MD - 09/29/2011 2:23 PM PDTFormatting of this note might be different from t he original. BREAST CLINIC OUTPATIENT CONSULTATION 09/29/2011 Consulting Physician: HECTOR MAGAÑA MD Referring Physician: Brenda Hudson PA HPI: Ella Weber is a 20 y.o. female here for a 2nd opinion breast clinic consulta tion for a right breast cancer. She palpated a mass in her right breast in 05/2011. She was not particularly concerned until recently when she noticed that the mass was still present a nd seemed larger. She saw her PCP in [place] who subsequently sent her for a targeted rig t ultrasound. The imaging and report are not currently available for my review at the time o f this visit. 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 She states the mass is now painful since the biopsy. She denies other breast symptoms of masses, skin changes, nipple discharge, or adenopathy. She reports that she has had intermittent bilateral milky discharge for both nipples since h er son was born two years ago. She also denies any new constitutional symptoms of fatigue, w eight loss, fever, or headache. She saw a surgeon in [place], [place] who recommended surgical excision. Of note, she repo rts a personal history of cervical cancer treated with a cone biopsy. PAST MEDICAL HISTORY: Past Medical History Diagnosis Date HTN (hypertension) well contolled no meds Cervical cancer personal history tx with cone biopsy alone PAST SURGICAL HISTORY: Past Surgical History Procedure Date section 2009 Ovarian cyst removal 2010 PAST BREAST BIOPSIES (FNA, stereotactic, core, etc.): As above. PAST MOTORCYCLE SUBASSEMBLER HISTORY: OB History Grav Para Term Abortions TAB SAB Ect Mult Living Obstetric Comments PAST MOTORCYCLE SUBASSEMBLER HISTORY: Age of menarche: 10 LMP or Age of menopause: ? irregular /Para: 2/1 Ages and gender of children: M, 2 yrs Length of time : 2 mo OCP use: Mirena HRT use: Never MEDICATIONS: Current Outpatient Prescriptions Medication Sig traMADol 50 mg Oral Tablet Take 50 mg by mouth two times daily. Supplements/Herbs: denies ALLERGIES: No Known Allergies SOCIAL HISTORY: History Social History Marital Status: Single Spouse Name: N/A Number of Children: N/A Years of Education: N/A Social History Main Topics Smoking status: Current Everyday Smoker Smokeless tobacco: Never Used Alcohol Use: Yes rare Drug Use: No Sexually Active: Not on file Other Topics Concern Not on file Social History Narrative Presented with her adopted mom. Full-time student studying [employer]. FAMILY HISTORY: Patient denies family history of breast or ovarian cancers. Family History Problem Relation Cancer Paternal Grandfather lung Cancer Paternal Grandmother brain Cancer Mother colon Cancer Maternal Aunt cervical Cancer Maternal Grandfather ? lymphoma REVIEW OF SYSTEMS: A 14-point review of systems intake form was filled out by the patient a nd reviewed with the patient. Patient denies any new constitutional symptoms. ROS [...] or rash, persistent infections or HIV exposure. OBJECTIVE Vital signs: BP 111/67 | Pulse 77 | Temp (Src) 36.5 C (97.7 F) (Oral) | RR 14 | Ht 166 cm (5' 5.35") | Wt 91.354 kg (201 lb 6.4 oz) | SpO2 100% | BMI 33.15 kg/(m^2) PHYSICAL EXAM: General: She is a well-developed, well-nourished female in no apparent distress, alert and oriented x3. Head and neck: Normocephalic, atraumatic. Sclerae are anicteric. Neck is soft and supple. No masses. No cervical or clavicular adenopathy. Chest/Lungs: CTAB Heart: RRR, no m/r/g Abdomen: Soft, nontender, and nondistended. No palpable masses. Extremities: No cyanosis, clubbing, or edema. Breast exam: A multi-positional bilateral breast exam was performed. Right breast: ~2.5cm mobile, firm, smooth mass at 8:30. There are no skin changes. No nipple discharge. Right a xilla is negative for adenopathy. Left breast: There are no palpable dominant masses or ski n changes. No nipple discharge. Left axilla is negative for adenopathy. DATA: Outside imaging not available for this visit; right breast ultrasound has been requested. Results for orders placed in visit on 09/19/11 PATHOLOGY CONSULT - REVIEW OUTSIDE SLIDES Component Value Range PATHOLOGY CONSULT - SLIDES Value: SOURCE OF SPECIMEN:A Right breast needle biopsy Materials Received: Referring Institution: [facility], [facility] [place], [place] Outside Accession Number: [id number] Sample Collection Date: 08/26/2011 Sublabeled H&E IHC Unstained Blo cks 1 1 0 0 0 Final Pathologic Diagnosis: Breast, right, needle biopsy ([id number], 08/26/11): - Fibroepithelial lesion (see comment) Comment: Thank you for sharing this case for our review. We agree with the referring pathologist's and senior erp consultant's diagnosis of fibroepithelial lesion with some atypical features. Some of the core segments sampled have a paucicellular, hyalinized stroma typical of fibroadenoma, with focal areas of pseudoangiomatous stromal hyperplasia (PASH). However, other areas have a looser, more cellular stroma which could represent either fibroadenoma or phyllodes tumor. Architecture and stromal overgrowth is difficult to assess in a core needle biopsy; thus I agree with the senior erp consultant that an excisional biopsy would be necessary for a definitive classification. Case seen by: Rose Cash M.D., Ph.D./Pathologist This slide will be returned at a later date. / Clinical History: The patient is a 20-year-old woman with a nodule in her right breast and a family history of early breast cancer. This case was previously reviewed for expert consultation by Dr. Stacy Moralez at [place]. The patient is now being seen at [facility]'s Breast Tumor Board. My electronic signature indicates that I have personally reviewed all diagnostic slides, the gross and/or microscopic portion of this report and formulated the final diagnosis. Rendering Diagnostician: Rose Cash M.D. Ph.D. Pathologist Electronically Signed 09/23/2011 6:04PM ASSESSMENT: Ella Weber is a 20 y.o. female here today for a breast clinic consult ation for recently diagnosed right breast fibroepithelial lesion. I discussed the differenti al diagnosis with her and her mother, including fibroadenoma and phyllodes tumor. I explaine d that generally a lumpectomy would be performed. If final pathology showed phyllodes tumor, then re-excision with 1cm negative margins would be recommended. I also explained that intr aoperative frozen section on breast tissue is generally inaccurate, which is why final patho logy would dictate management. I spent 50 minutes with this patient, over 50% of which was i n consultation. PLAN: 1. Recommend right breast lumpectomy. 2. If patient has surgery here, obtain outside imaging for review prior to surgery. I would like to thank AMANDO Richard [...] | + +--------+ + + + | RADIOLOGY | | 09/29/2011 | | Results for this | | | | 12:00 AM | | procedure are in the | | | | PDT | | results section. | + +--------+ + + + documented in this encounter Results RADIOLOGY (09/29/2011 12:00 AM PDT) + + + | Narrative | Performed At | + + + | | | + + + + + | Transcriptions | + + | [facility] - 10/06/2011 9:54 AM PDT | + + documented in this encounter Visit Diagnoses + + | Diagnosis | + + | Lump or mass in breast - Primary | + + documented in this encounter
--- OUTSIDE RECORDS SUMMARY | ~2019-05-16 | XMS | Encounter Summary ---
Demographics + + + | Address | [address] | | | [place] [address] | + + + | Home Phone | | + + + | Preferred Language | Unknown | + + + | Marital Status | Single | + + + | Caodaism Affiliation | Unknown | + + + | Race | White | + + + | Ethnic Group | Not or | + + + Author + + + | Author | [facility] | + + + | Organization | [facility] | + + + | Address | Unknown | + + + | Phone | Unavailable | + + + Support + + + + + | Name | Relationship | Address | Phone | + + + + + | Heidy Martinez | ECON | [address] | | | | | [place] | | | | | [address] | | + + + + + Care Team Providers + +------+ + | Care Bagel Maker Name | Role | Phone | + +------+ + | Brenda Hudson | PCP | | + +------+ + Encounter Details +--------+ + + + + | Date | Type | Department | Care Team | Description | +--------+ + + + + | 12/07/ | Melter Supervisor Oxygen Furnace | [facility] | Angelina Magaña MD | Lump in female | | 2011 | | at [facility] [address] | [address] | breast (Primary Dx) | | | | [address] | [place], [place] | | | | | Mailcode: [id number] | [address] | | | | | [place] | [phone] | | | | | [place] | | | | | | [address] | | | | | | [phone] | | | +--------+ + + + [...] | PATHOLOGY CONSULT - | Routin | 12/08/2011 | Lump in female | Results for this | | REVIEW OUTSIDE | e | | breast | procedure are in the | | SLIDES | | | | results section. | + +--------+ + + + documented in this encounter Results US BREAST RIGHT (2011 9:10 AM PDT) + + + + + + | Component | Value | Ref Range | Performed | Pathologist | | | | | At | Signature | + + + + + + | US BREAST | Patient History:Patient | | | | | RIGHT | has history of high-risk | | | | | | lesion on a previous | | | | | | biopsy atage 20.High | | | | | | risk ultrasound-guided | | | | | | core biopsy of the right | | | | | | breast,August 26, | | | | | | [id number] Lump or mass | | | | | | in breast Reason for | | | | | | Exam/ReferralDiagnosis?- | | | | | | >Lump Ht on (09/29/2011) | | | | | | 166 cm (5' 5.35"), Wt | | | | | | on(09/29/2011) 91.354 kg | | | | | | (201 lbs 6.4 oz) US | | | | | | BREAST RIGHT: December 21, | | | | | | 2011 - Accession #: | | | | | | [id number] study | | | | | | comparison: December 17, | | | | | | 2011, MAMMS OUTSIDE | | | | | | FILMS. 2011, US | | | | | | BREAST RIGHT, performed | | | | | | at an outside | | | | | | facility.August 21, | | | | | | 2011, US BREAST RIGHT, | | | | | | performed at an | | | | | | outsidefacility.The | | | | | | patient has had a | | | | | | phyllodes tumor removed | | | | | | from the rightbreast at | | | | | | 8:00 and has new deep | | | | | | pain at 9-10:00. The | | | | | | rightbreast was scanned | | | | | | over area of palpable | | | | | | concern which is | | | | | | between9:00 and 10:00 | | | | | | o'clock. Normal breast | | | | | | tissue is seen around | | | | | | thearea scanned. There | | | | | | is no mass or | | | | | | abnormality at the | | | | | | insicionsite. | | | | | | ASSESSMENT: Benign - | | | | | | Category 2 | | | | | | RECOMMENDATION:Continued | | | | | | clinical monitoring. | | | | | | This was discussed | | | | | | with thepatient. | | | | | | Attending Radiologists: | | | | | | MELBA NO M.D.Author: | | | | | | Ann Ocasio M.D. I | | | | | [...] NO | | | | | | 2011 12:35 PM | | | | + + + + + + + + | Specimen | + + | | + + + +---------+ + + | Performing | Address | City/State/Zipcode | Phone Number | | Organization | | | | + +---------+ + + | [facility] | | | | | RADIOLOGY | | | | + +---------+ + + PATHOLOGY CONSULT - REVIEW OUTSIDE SLIDES (12/08/2011) + + + + + + | Component | Value | Ref Range | Performed | Pathologist | | | | | At | Signature | + + + + + + | PATHOLOGY | SOURCE OF SPECIMEN:A | | [facility] | | | CONSULT - | Right lateral breast | | DEPARTMENT | | | SLIDES | biopsy Materials | | OF | | | | Received:Referring | | PATHOLOGY | | | | Institution: [facility] | | | | | | [facility], | | | | | | [facility] [place], [place] | | | | | | [id number] Accession | | | | | | Number: [id number] Sample | | | | | | Collection Date: | | | | | | 10/02/2011Sublabeled | | | | | | | | | | | | H&E | | | | | | 1 to 5 | | | | | | 5 Final | | | | | | Pathologic | | | | | | Diagnosis:Right lateral | | | | | | breast, biopsy | | | | | | ([id number], 10/02/11): | | | | | | - 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 We fully | | | | | | concurwith the referring | | | | | | diagnosis. Sections | | | | | | show a fibroepithelial | | | | | | neoplasmwith "leaf-like" | | | | | | architecture, | | | | | | hypercellular stroma, | | | | | | and relatively | | | | | | blandstromal cytologic | | | | | | features. There is no | | | | | | evidence of overt | | | | | | cytologicmalignancy | | | | | | within the stroma, and | | | | | | the mitotic rate does | | | | | | not appearelevated. | | | | | | Nevertheless, excision | | | | | | of even low grade | | | | | | phyllodes tumors | | | | | | withappropriate margins | | | | | | is recommended. | | | | | | Case seen by:Rose Cai | | | | | | Shreya, Ph.D., | | | | | | M.DRick/Ayalaliyeimi | | | | | | will be returned at a | | | | | | later dateT:12/10/11:jennifer | | | | | | Clinical | | | | | | History:The patient is a | | | | | | 20-year-old female with | | | | | | prior breast core | | | | | | needle | | | | | | biopsydemonstrating a | | | | | | fibroepithelial lesion | | | | | | (previously reviewed as | | | | | | [id number]).The | | | | | | subsequent resection | | | | | | specimen is submitted as | | | | | | the patient is seeing | | | | | | . My | | | | | | electronic signature | | | | | | indicates that I have | | | | | | personally reviewed | | | | | | alldiagnostic slides, | | | | | | the gross and/or | | | | [...] | | | | | ann Signed 12/10/2011 | | | | | | 7:50PM | | | | + + + + + + + + | Specimen | + + | Slide | + + + + + + + | Performing | Address | City/State/Zipcode | Phone Number | | Organization | | | | + + + + + | [facility] | [address] | [place] [address] | | | PATHOLOGY | [address] | | | + + + + + documented in this encounter Visit Diagnoses + + | Diagnosis | + + | Lump in female breast - Primary Lump or mass in breast | + + documented in this encounter
--- OUTSIDE RECORDS SUMMARY | ~2019-05-16 | XMS | Encounter Summary ---
Demographics + + + | Address | [address] | | | [place] [address] | + + + | Home Phone [...] Author + + + | Author | [facility] | + + + | Organization | [facility] | + + + | Address | Unknown | + + + | Phone | Unavailable | + + + Support + + + + + | Name | Relationship | Address | Phone | + + + + + | Heidy Martinez | ECON | [address] | | | | | [place] | | | | | [address] | | + + + + + Care Team Providers + +------+ + | Care Commercial Roofing Estimator Name | Role | Phone | + [...] | | | | | FAMILY | [place], [place] | | | | | | MEDICINE P | [address] | | | | | | [address] | Phone: | | | | | | [place], | [phone] | | | | | | [place] [address] | Fax: | | | | | | Phone: | [phone] | | | | | | [phone] | | | | | | | Fax: | | | | | | | [phone] | | + +--------+ + + + [...] | | | [address] | [place], [place] | | | | | Mailcode: L[address]A | [address] | | | | | [place] | [phone] | | | | | [place], [place] | | | | | | [address] | | | | | | [phone] | | | +--------+---------+ + + + [...] seemed larger. She saw her PCP in [place] who subsequently sent her for a targeted [...] or headache. She saw a surgeon in [place], [place] who recommended surgical excision. Of note, [...] (FNA, stereotactic, core, etc.): As above. PAST BILINGUAL CASE MANAGER HISTORY: OB History Grav Para Term Abortions TAB SAB Ect Mult Living Obstetric Comments PAST BILINGUAL CASE MANAGER HISTORY: Age of menarche: 10 LMP or [...] with her adopted mom. Full-time student studying [employer] FAMILY HISTORY: Patient denies family history of [...] breast needle biopsy Materials Received: Referring Institution: [facility], [facility] [place], [place] Outside Accession Number: [id number] Sample Collection Date: 08/26/2011 Sublabeled H&E IHC Unstained Blo cks 1 1 0 0 0 Final Pathologic Diagnosis: Breast, right, needle biopsy ([id number], 08/26/11): - Fibroepithelial lesion (see comment) Comment: Thank you for sharing this case for our review. We agree with the referring pathologist's and data virtualization consultant's diagnosis of fibroepithelial lesion with some [...] needle biopsy; thus I agree with the data virtualization consultant that an excisional biopsy would be [...] expert consultation by Dr. Stacy Moralez at [place]. The patient is now being seen at [facility]'s Breast Tumor Board. My electronic signature indicates [...]
--- OUTSIDE RECORDS SUMMARY | ~2019-05-16 | XMS | Encounter Summary ---
Demographics + + + | Address | [address] | | | [place] [address] | + + + | Home Phone | | + + + | Preferred Language | Unknown | + + + | Marital Status | Single | + + + | Jain Affiliation | Unknown | + + + | Race | White | + + + | Ethnic Group | Not or | + + + Author + + + | Author | [facility] | + + + | Organization | [facility] | + + + | Address | Unknown | + + + | Phone | Unavailable | + + + Support + + + + + | Name | Relationship | Address | Phone | + + + + + | Heiyd Martinez | ECON | [address] | | | | | [place] | | | | | [address] | | + + + + + Care Team Providers + +------+ + | Care Mosaic Technician Name | Role | Phone | + +------+ + | Brenda Hudson | PCP | | + +------+ + Reason for Visit + + + | Reason | Comments | + + + | Surgery Scheduling | | + + + Encounter Details +--------+ + + + + | Date | Type | Department | Care Team | Description | +--------+ + + + + | 10/01/ | Telephone | Surgical Oncology | Angelina Magaña MD | Surgery Scheduling | | 2011 | | - Breast Clinic | [address] | | | | | [address] | [place], [place] | | | | | Mailcode: [facility] | [address] | | | | | [facility] | [phone] | | | | | and Healing, | | | | | | [facility] | | | | | | Floor [place], [place] | | | | | | [address] | | | | | | [phone] | | | +--------+ + + + [...]
--- OUTSIDE RECORDS SUMMARY | ~2019-05-16 | XMS | Encounter Summary ---
Demographics + + + | Address | [address] | | | [place] [address] | + + + | Home Phone | | + + + | Preferred Language | Unknown | + + + | Marital Status | Single | + + + | Mormon Affiliation | Unknown | + + + | Race | White | + + + | Ethnic Group | Not or | + + + Author + + + | Author | [facility] | + + + | Organization | [facility] | + + + | Address | Unknown | + + + | Phone | Unavailable | + + + Support + + + + + | Name | Relationship | Address | Phone | + + + + + | Heidy Martinez | ECON | [address] | | | | | [place] | | | | | [address] | | + + + + + Care Team Providers + +------+ + | Care Travel Counselor Name | Role | Phone | + +------+ + | Brenda Hudson | PCP | | + +------+ + Encounter Details +--------+ + + + + | Date | Type | Department | Care Team | Description | +--------+ + + + + | 04/08/ | Hospital | [facility] | | | | 2011 | Encounter | Center at [facility] [address] | | | | | | [place], | | | | | | [address] [place], | | | | | | [place] [address] | | | | | | [phone] | | | +--------+ + + + [...]
--- OUTSIDE RECORDS SUMMARY | ~2019-05-16 | XMS | Encounter Summary ---
Demographics + + + | Address | [address] | | | [place] [address] | + + + | Home Phone | | + + + | Preferred Language | Unknown | + + + | Marital Status | Single | + + + | Bahai Affiliation | Unknown | + + + | Race | White | + + + | Ethnic Group | Not or | + + + Author + + + | Author | [facility] | + + + | Organization | [facility] | + + + | Address | Unknown | + + + | Phone | Unavailable | + + + Support + + + + + | Name | Relationship | Address | Phone | + + + + + | Heidy Martinez | ECON | [address] | | | | | [place] | | | | | [address] | | + + + + + Care Team Providers + +------+ + | Care Advanced Clinical Specialist Name | Role | Phone | + +------+ + | Brenda Hudson | PCP | | + +------+ + Encounter Details +--------+ + + + + | Date | Type | Department | Care Team | Description | +--------+ + + + + | 08/28/ | Ancillary | Registration [address] | Nancy Hidalgo, | | | 2005 | Registratio | [address] [facility] | PNP [address] | | | | n | [address] Mailcode: [id number] | [address] [place], [place] | | | | | [place], [place] | [address] | | | | | [address] | [phone] | | | | | [phone] | | | +--------+ + + + [...]
--- OUTSIDE RECORDS SUMMARY | ~2019-05-16 | XMS | Encounter Summary ---
Demographics + + + | Address | [address] | | | [place] [address] | + + + | Home Phone | | + + + | Preferred Language | Unknown | + + + | Marital Status | Single | + + + | Orthodox Affiliation | Unknown | + + [...] [place] | | | | | [address] | | + + + + + Care Team Providers + +------+ + | Care Towel Sorter Name | Role | Phone | + +------+ + PCP | Unavailable | + +------+ + Encounter Details +--------+ + + + + | Date | Type | Department | Care Team | Description | +--------+ + + + + | 10/13/ | Results | Registration [address] | | | | 1994 | Only | [address] | | | | | | [address] Mailcode: RPB07 | | | | | | [place], [place] | | | | | | [address] | | | | | | [phone] | | | +--------+ + + + [...] | + +--------+ + + + | MISCELLANEOUS | Routin | 10/13/1994 | | Results for this | | CHEMISTRY TESTS | e | 3:26 PM | | procedure are in the | | | | PST | | results section. | + +--------+ + + + | ALPHA 1 ANTITRP | Routin | 10/13/1994 | | Results for this | | PHEN/LEV, SERUM | e | 2:55 PM | | procedure are in the | | | | PST | | results section. | + +--------+ + + + documented in this encounter Results MISCELLANEOUS CHEMISTRY TESTS (10/13/1994 3:26 PM PST) + + + + + + | Component | Value | Ref Range | Performed | Pathologist | | | | | At | Signature | + + + + + + | ALPHA 1 | 136. | mg/dL | | | | ANTITRY SER | | | | | + + + + + + + + | Specimen | + + | | + + + + + + + | Performing | Address | City/State/Zipcode | Phone Number | | Organization | | | | + + + + + | [facility] | [address] | [place] [address] | | | PATHOLOGY | [address] | | | + + + + + ALPHA 1 ANTITRP PHEN/LEV, SERUM (10/13/1994 2:55 PM PST) + + + + + + | Component | Value | Ref Range | Performed | Pathologist | | | | | At | Signature | + + + + + + | ALPHA 1 | MM | | | | | ANTITRYPSIN | | | | | | PHENOTYPE | | | | | + + + + + + | ALPHA 1 | REFERRED TO [facility] | | | | | ANTITRYPSIN | [facility] | | | | | PHENOTYPE | | | | | + + + + + + + + | Specimen | + + | | + + + + + + + | Performing | Address | City/State/Zipcode | Phone Number | | Organization | | | | + + + + + | [facility] | [address] | [place], [place] [address] | | | PATHOLOGY | [address] | | | + + + + + documented in this encounter Visit Diagnoses Not on filedocumented in this encounter"
--- OUTSIDE RECORDS SUMMARY | ~2019-05-16 | XMS | Encounter Summary ---
Demographics + + + | Address | [address] | | | [place] [address] | + + + | Home Phone [...] [place] | | | | | [address] | | + + + + + Care Team Providers + +------+ + | Care Optical Manufacturing Technician Name | Role | Phone | [...] as of this encounter Progress Notes Interface, Carnallite Plant Operator In - 11/14/2005 2:03 AM PDT [id number] [facility] Clinic: Pediatric Gastroenterology I received patient's TSH that was drawn on October 03, 2005, normal at 1.60. She also had a lumbar spine series on October 02, 2005, that was normal. No sign of spinal dysraphism or any degenerative changes. Rosalie Corcoran. MARCO A / [id number] / [id number] / [id number] / documented i n this encounter Plan of Treatment Not on filedocumented as of this encounter Visit Diagnoses Not on filedocumented in this encounter"
--- OUTSIDE RECORDS SUMMARY | ~2019-05-16 | XMS | Encounter Summary ---
Demographics + + + | Address | [address] | | | [place] [address] | + + + | Home Phone [...] [place] | | | | | [address] | | + + + + + Care Team Providers + +------+ + | Care Orthotist/Prosthetist Name | Role | Phone | + [...] | | | [address] | [place], [place] | | | | | [place] | [address] | | | | | [place], [place] | [phone] | | | | | [address] | | | | | | [phone] | | | +--------+ + + + [...]
--- OUTSIDE RECORDS SUMMARY | ~2019-05-16 | XMS | Encounter Summary ---
Demographics + + + | Address | [address] | | | [place] [address] | + + + | Home Phone | | + + + | Preferred Language | Unknown | + + + | Marital Status | Single | + + + | Jewish Affiliation | Unknown | + + + | Race | White | + + + | Ethnic Group | Not or | + + + Author + + + | Author | [facility] | + + + | Organization | [facility] | + + + | Address | Unknown | + + + | Phone | Unavailable | + + + Support + + + + + | Name | Relationship | Address | Phone | + + + + + | Heidy Martinez | ECON | [address] | | | | | [place] | | | | | [address] | | + + + + + Care Team Providers + +------+ + | Care Land Commissioner Name | Role | Phone | + [...] | | | | | SURGERY | [place], [place] | Mailcode: | | | | | SENIOR ADMINISTRATIVE ASSISTANT | [address] | [address] | | | | | MD REDUCTION | Phone: | for Health | | | | | OF LARGE | [phone] | and Healing, | | | | | BREAST MD | Fax: | Building 1, | | | | | REDUCTION OF | [phone] | 5th Floor | | | | | LARGE | | [place], [place] | | | | | BREAST | | [address] | | | | | | | Phone: | | | | | | | [phone] | +--------+--------+ + + + + Reason [...] | | | | | phyllodes | DONKEY RIDE OPERATOR [address] | [address] | | | | | tumor Large | [address] | Ave | | | | | breasts | [address] | [place], [place] | | | | | Mastodynia, | Rd | [address] | | | | | female | [place], [place] | Phone: | | | | | Procedures | [address] | [phone] | | | | | CONSULT TO | Phone: | Fax: | | | | | SURGERY - | [phone] | [phone] | | | | | PLASTICS | Fax: | | | | | | | [phone] | | + +--------+ + + + [...] | | | | Surgery -Cosmetic | [place], [place] | tumor of breast | | | | [address] | [address] | | | | | Mailcode: CH5 | [phone] | | | | | [facility] | | | | | | and [address], | | | | | | Building | | | | | | Floor [place], [place] | | | | | | [address] | | | | | | [phone] | | | +--------+---------+ + + + [...] tumor in September of this year in [place], [place]. She has been seen by Dr. [...] Take by mouth. Social history: Lives [place] with boyfriend and 2 year old son [...] bilateral breast reduction. We will have our pass worker contact her to sche dule her operation [...]
--- OUTSIDE RECORDS SUMMARY | ~2019-05-16 | XMS | Encounter Summary ---
Demographics + + + | Address | [address] | | | [place] [address] | + + + | Home Phone [...] Author | [facility] | + + + | Organization | [facility] | + + + | Address | Unknown | + + + | Phone | Unavailable | + + + Support + + + + + | Name | Relationship | Address | Phone | + + + + + | Heidy Martinez | ECON | [address] | | | | | [place] | | | | | [address] | | + + + + + Care Team Providers + +------+ + | Care Hollow Tile Partition Erector Name | Role | Phone | + [...] | | | | | phyllodes | INSURANCE ASSISTANT [address] | [address] | | | | | tumor Large | [address] | Ave | | | | | breasts | [facility] | [place], [place] | | | | | Mastodynia, | Rd | [address] | | | | | female | [place], [place] | Phone: | | | | | Procedures | [address] | [phone] | | | | | CONSULT TO | Phone: | Fax: | | | | | SURGERY - | [phone] | [phone] | | | | | PLASTICS | Fax: | | | | | | | [phone] | | + +--------+ + + + [...] | | | | | FAMILY | [place], [place] | | | | | | MEDICINE P | [address] | | | | | | [address] | Phone: | | | | | | [place], | [phone] | | | | | | [place] [address] | Fax: | | | | | | Phone: | [phone] | | | | | | [phone] | | | | | | | Fax: | | | | | | | [phone] | | + +--------+ + + + [...] | | | [address] | [place], [place] | breasts; Mastodynia, | | | | Mailcode: L223A | [address] | female | | | | [address] | [phone] | | | | | [place], [place] | | | | | | [address] | | | | | | [phone] | | | +--------+---------+ + + + [...] lateral breast biopsy Materials Received: Referring Institution: [facility] [place] [address] Outside Accession Number: [id number] Sample Collection Date: 10/02/2011 Sublabeled H&E 1 to 5 5 Final Pathologic Diagnosis: Right lateral breast, 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
--- OUTSIDE RECORDS SUMMARY | ~2019-05-16 | XMS | Encounter Summary ---
Demographics + + + | Address | [address] | | | [place] [address] | + + + | Home Phone [...] Author + + + | Author | [facility] | + + + | Organization | [facility] | + + + | Address | Unknown | + + + | Phone | Unavailable | + + + Support + + + + + | Name | Relationship | Address | Phone | + + + + + | Heidy Martinez | ECON | [address] | | | | | [place] | | | | | [address] | | + + + + + Care Team Providers + +------+ + | Care Bid Manager Name | Role | Phone | + +------+ + | Brenda Hudson | PCP | | + +------+ + Encounter Details +--------+ + + + + | Date | Type | Department | Care Team | Description | +--------+ + + + + | 12/07/ | Leasing Professional | [facility] | Angelina Magaña MD | Lump in female | | 2011 | | at [facility] [address] | [address] | breast (Primary Dx) | | | | [address] | [place], [place] | | | | | Mailcode: L223A | [address] | | | | | [place] | [phone] | | | | | [place] | | | | | | [address] | | | | | | [phone] | | | +--------+ + + + [...] #: | | | | | | [id number] study | | | | | | [...] [facility] | | | | | | [facility] | | | | | | [facility] [place], [place] | | | | | | [id number] Accession | | | | | | Number: [id number] Sample | | | | | | [...] biopsy | | | | | | ([id number], 10/02/11): | | | | | | [...] | + + + + + | [facility] | [address] | [place] [address] | | | PATHOLOGY | [address] | | | + + + + + documented in this encounter Visit Diagnoses + + | Diagnosis | + + | Lump in female breast - Primary Lump or mass in breast | + + documented in this encounter
--- OUTSIDE RECORDS SUMMARY | ~2019-05-16 | XMS | Encounter Summary ---
Demographics + + + | Address | [address] | | | [place] [address] | + + + | Home Phone | | + + + | Preferred Language | Unknown | + + + | Marital Status | Single | + + + | Holiness Affiliation | Unknown | + + + [...] [place] | | | | | [address] | | + + + + + Care Team Providers + +------+ + | Care Slag Skimmer Name | Role | Phone | + +------+ + | Brenda Hudson | PCP | | + +------+ + Encounter Details +--------+ + + + + | Date | Type | Department | Care Team | Description | +--------+ + + + + | 12/17/ | Hospital | Women's Imaging | | | | 2011 | Encounter | Center at [facility] [address] | | | | | | [address] | | | | | | [address] | | | | | | [place] | | | | | | [place] | | | | | | [address] | | | | | | [phone] | | | +--------+ + + + [...] [facility] | [facility] [place] [facility] | lumpectomy, slides here | | | | | | and films here MAMMS | | | | | | OUTSIDE FILMS: December 17, | | | | | | 2011 - Accession #: | | | | | | [id number] study | | | | | | [...]
--- OUTSIDE RECORDS SUMMARY | ~2019-05-16 | XMS | Encounter Summary ---
Demographics + + + | Address | [address] | | | [place] [address] | + + + | Home Phone | | + + + | Preferred Language | Unknown | + + + | Marital Status | Single | + + + | Rastafarian Affiliation | Unknown | + + + [...] [place] | | | | | [address] | | + + + + + Care Team Providers + +------+ + | Care Automotive Quality Engineer Name | Role | Phone | [...] | | | | | FAMILY | [place], [place] | | | | | | MEDICINE P | [address] | | | | | | [address] | Phone: | | | | | | [place], | [phone] | | | | | | [place] [address] | Fax: | | | | | | Phone: | [phone] | | | | | | [phone] | | | | | | | Fax: | | | | | | | [phone] | | + +--------+ + + + + Encounter Details +--------+---------+ + + + | Date | Type | Department | Care Team | Description | +--------+---------+ + + + | 04/08/ | Office | [facility] | Angelina Magaña MD | 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 Performed at [facility] and [facility]. ASSESSMENT: Negative - Category 1 RECOMMENDATION: Treatment [...]
--- OUTSIDE RECORDS SUMMARY | ~2019-05-16 | XMS | Encounter Summary ---
Demographics + + + | Address | [address] | | | [place] [address] | + + + | Home Phone | | + + + | Preferred Language | Unknown | + + + | Marital Status | Single | + + + | Pentecostal Affiliation | Unknown | + + + | Race | White | + + + | Ethnic Group | Not or | + + + Author + + + | Author | [facility] | + + + | Organization | [facility] | + + + | Address | Unknown | + + + | Phone | Unavailable | + + + Support + + + + + | Name | Relationship | Address | Phone | + + + + + | Heidy Martinez | ECON | [address] | | | | | [place] | | | | | [address] | | + + + + + Care Team Providers + +------+ + | Care Plasterer Maintenance Name | Role | Phone | + [...] | | [address] | [place], [place] | | | | | Mailcode: [facility] | [address] | | | | | [facility] | [phone] | | | | | and Healing, | | | | | | [facility] | | | | | | Floor [place], [place] | | | | | | [address] | | | | | | [phone] | | | +--------+ + + + [...]
--- OUTSIDE RECORDS SUMMARY | ~2019-05-16 | XMS | Encounter Summary ---
Demographics + + + | Address | [address] | | | [place] [address] | + + + | Home Phone [...] + + + | Author | [facility] | + + + | Organization | [facility] | + + + | Address | Unknown | + + + | Phone | Unavailable | + + + Support + + + + + | Name | Relationship | Address | Phone | + + + + + | Heidy Martinez | ECON | [address] | | | | | [place] | | | | | [address] | | + + + + + Care Team Providers + +------+ + | Care Manager Chinese Name | Role | Phone | + [...] as of this encounter Progress Notes Interface, Yarn Texture Machine Operator In - 09/04/2005 2:03 AM PST [id number] [facility] Clinic Date: 08/28/2005 Clinic: Pediatric [...] healthy. City water. No travel outside the [place]. Review of Systems: Vital Signs: Stable [...] 4. Follow in clinic Suraj BenitoT / [id number] / [id number] / [id number] / [id number] cc: [facility], [address] [address] documented i n this encounter Plan of Treatment Not on filedocumented as of this encounter Visit Diagnoses Not on filedocumented in this encounter"
--- OUTSIDE RECORDS SUMMARY | ~2019-05-16 | XMS | Encounter Summary ---
Demographics + + + | Address | [address] | | | [place] [address] | + + + | Home Phone | | + + + | Preferred Language | Unknown | + + + | Marital Status | Single | + + + | Confucianism Affiliation | Unknown | + + + | Race | White | + + + | Ethnic Group | Not or | + + + Author + + + | Author | [facility] | + + + | Organization | [facility] | + + + | Address | Unknown | + + + | Phone | Unavailable | + + + Support + + + + + | Name | Relationship | Address | Phone | + + + + + | Heidy Martinez | ECON | [address] | | | | | [place] | | | | | [address] | | + + + + + Care Team Providers + +------+ + | Care Supervisor Statement Clerks Name | Role | Phone | + [...] [id number] | | | | | | [place], [place] | | | | | | [address] | | | | | | [phone] | | | +--------+ + + + [...] | + + + + + | [facility] | [address] | [place] [address] | | | PATHOLOGY | [address] [...] | + + + + + | [facility] | [address] | [place], [place] [address] | | | PATHOLOGY | [address] | | | + + + + + documented in this encounter Visit Diagnoses Not on filedocumented in this encounter"
--- OUTSIDE RECORDS SUMMARY | ~2019-05-16 | XMS | Encounter Summary ---
Demographics + + + | Address | [address] | | | [place] [address] | + + + | Home Phone | | + + + | Preferred Language | Unknown | + + + | Marital Status | Single | + + + | Pentecostalism Affiliation | Unknown | + + + [...] [place] | | | | | [address] | | + + + + + Care Team Providers + +------+ + | Care Special Shopper Name | Role | Phone | + +------+ + | Brenda Hudson | PCP | | + +------+ + Encounter Details +--------+ + + + + | Date | Type | Department | Care Team | Description | +--------+ + + + + | 09/18/ | Web Press Jogger | [facility] | Angelina Magaña MD | | | 2011 | | [address] | [address] | | | | | Mailcode: CH7A | [place], [place] | | | | | [facility] | [address] | | | | | and Healing, | [phone] | | | | | [address] | | | | | | Floor [place], [place] | | | | | | [address] | | | | | | [phone] | | | +--------+ + + + [...]
--- OUTSIDE RECORDS SUMMARY | ~2019-05-16 | XMS | Encounter Summary ---
Demographics + + + | Address | [address] | | | [place] [address] | + + + | Home Phone [...] Author + + + | Author | [facility] | + + + | Organization | [facility] | + + + | Address | Unknown | + + + | Phone | Unavailable | + + + Support + + + + + | Name | Relationship | Address | Phone | + + + + + | Heidy Martinez | ECON | [address] | | | | | [place] | | | | | [address] | | + + + + + Care Team Providers + +------+ + | Care Compliance Consultant Name | Role | Phone | + +------+ + | Brenda Hudson | PCP | | + +------+ + Encounter Details +--------+ + + + + | Date | Type | Department | Care Team | Description | +--------+ + + + + | 12/21/ | Hospital | Women's Imaging | | | | 2011 | Encounter | Center at [facility] [address] | | | | | | [address] | | | | | | [address] | | | | | | [place], [place] | | | | | | [address] | | | | | | [phone] | | | +--------+ + + + [...] | US BREAST RIGHT | Routin | 2011 | Lump in female | Results for this | | | e | 9:10 AM | breast | procedure are in the [...] #: | | | | | | [id number] study | | | | | | [...] | + +---------+ + + | [facility] DEPARTMENT OF | | | | | RADIOLOGY | | | | + +---------+ + + documented in this encounter Visit Diagnoses + + | Diagnosis | + + | Lump in female breast Lump or mass in breast | + + documented in this encounter
--- OUTSIDE RECORDS SUMMARY | ~2019-05-16 | XMS | Encounter Summary ---
Demographics + + + | Address | [address] | | | [place] [address] | + + + | Home Phone | | + + + | Preferred Language | Unknown | + + + | Marital Status | Single | + + + | Latter-Day Affiliation | Unknown | + + + | Race | White | + + + | Ethnic Group | Not or | + + + Author + + + | Author | [facility] | + + + | Organization | [facility] | + + + | Address | Unknown | + + + | Phone | Unavailable | + + + Support + + + + + | Name | Relationship | Address | Phone | + + + + + | Heidy Martinez | ECON | [address] | | | | | [place] | | | | | [address] | | + + + + + Care Team Providers + +------+ + | Care Guncotton Packer Name | Role | Phone | + +------+ + | Brenda Hudson | PCP | | + +------+ + Encounter Details +--------+ + + + + | Date | Type | Department | Care Team | Description | +--------+ + + + + | 03/31/ | Telephone | [facility] | Angelina Magaña MD | | | 2011 | | at [facility] [address] | [address] | | | | | [address] | [place], [place] | | | | | Mailcode: L223A | [address] | | | | | [place] | [phone] | | | | | [facility] [place] | | | | | | [address] | | | | | | [phone] | | | +--------+ + + + [...]
--- OUTSIDE RECORDS SUMMARY | ~2019-05-16 | XMS | Encounter Summary ---
Demographics + + + | Address | [address] | | | [place] [address] | + + + | Home Phone | | + + + | Preferred Language | Unknown | + + + | Marital Status | Single | + + + | Presybeterian Affiliation | Unknown | + + + [...] [place] | | | | | [address] | | + + + + + Care Team Providers + +------+ + | Care House Mover Helper Name | Role | Phone | + [...] | | | | | [address] [place], | | | | | | [place] [address] | | | | | | [phone] | | | +--------+ + + + [...]
--- OUTSIDE RECORDS SUMMARY | ~2019-05-16 | XMS | Encounter Summary ---
Demographics + + + | Address | [address] | | | [place] [address] | + + + | Home Phone | | + + + | Preferred Language | Unknown | + + + | Marital Status | Single | + + + | Spiritism Affiliation | Unknown | + + + | Race | White | + + + | Ethnic Group | Not or | + + + Author + + + | Author | [facility] | + + + | Organization | [facility] | + + + | Address | Unknown | + + + | Phone | Unavailable | + + + Support + + + + + | Name | Relationship | Address | Phone | + + + + + | Heidy Martinez | ECON | [address] | | | | | [place] | | | | | [address] | | + + + + + Care Team Providers + +------+ + | Care Senior Outside Sales Representative Name | Role | Phone | + [...] | | | | [address] [place], [place] | | | | | [facility] | [address] | | | | | [address] | [phone] | | | | | [address]le[address] Mailcode: | | | | | | [address] | | | | | | [place], [place] | | | | | | [address] | | | | | | [phone] | | | +--------+ + + + [...]
--- OUTSIDE RECORDS SUMMARY | ~2019-05-16 | XMS | Encounter Summary ---
Demographics + + + | Address | [address] | | | [place] [address] | + + + | Home Phone | | + + + | Preferred Language | Unknown | + + + | Marital Status | Single | + + + | Yazidi Affiliation | Unknown | + + + | Race | White | + + + | Ethnic Group | Not or | + + + Author + + + | Author | [facility] | + + + | Organization | [facility] | + + + | Address | Unknown | + + + | Phone | Unavailable | + + + Support + + + + + | Name | Relationship | Address | Phone | + + + + + | Heidy Martinez | ECON | [address] | | | | | [place] | | | | | [address] | | + + + + + Care Team Providers + +------+ + | Care Pocket Secretary Assembler Name | Role | Phone | + +------+ + | Brenda Hudson | PCP | | + +------+ + Encounter Details +--------+ + + + + | Date | Type | Department | Care Team | Description | +--------+ + + + + | 12/21/ | Hospital | Women's Imaging | | | | 2011 | Encounter | Center at [facility] [address] | | | | | | [address] | | | | | | [address] | | | | | | [place], [place] | | | | | | [address] | | | | | | [phone] | | | +--------+ + + + [...] #: | | | | | | [id number] study | | | | | | [...] | | + +---------+ + + | [facility] DEPARTMENT OF | | | | | RADIOLOGY | | | | + +---------+ + + documented in this encounter Visit Diagnoses + + | Diagnosis | + + | Lump in female breast Lump or mass in breast | + + documented in this encounter
--- OUTSIDE RECORDS SUMMARY | ~2019-05-16 | XMS | Encounter Summary ---
Demographics + + + | Address | [address] | | | [place] [address] | + + + | Home Phone | | + + + | Preferred Language | Unknown | + + + | Marital Status | Single | + + + | Anglican Affiliation | Unknown | + + + [...] [place] | | | | | [address] | | + + + + + Care Team Providers + +------+ + | Care Treasury Consultant Name | Role | Phone | + +------+ + | Brenda Hudson | PCP | | + +------+ + Encounter Details +--------+ + + + + | Date | Type | Department | Care Team | Description | +--------+ + + + + | 08/28/ | Ancillary | Registration [address] | Nancy Hidalgo, | | | 2005 | Registratio | [facility] | PNP [address] | | | | n | [address] Mailcode: [address] | Rd [place], [place] | | | | | [place], [place] | [address] | | | | | [address] | [phone] | | | | | [phone] | | | +--------+ + + + [...]
--- OUTSIDE RECORDS SUMMARY | ~2019-05-16 | XMS | Encounter Summary ---
Demographics + + + | Address | [address] | | | [place] [address] | + + + | Home Phone | | + + + | Preferred Language | Unknown | + + + | Marital Status | Single | + + + | Voodoo Affiliation | Unknown | + + + | Race | White | + + + | Ethnic Group | Not or | + + + Author + + + | Author | [facility] | + + + | Organization | [facility] | + + + | Address | Unknown | + + + | Phone | Unavailable | + + + Support + + + + + | Name | Relationship | Address | Phone | + + + + + | Heidy Martinez | ECON | [address] | | | | [place] | | | | | [phone] | | + + + + + Care Team Providers + +------+ + | Care Fire Loss Prevention Engineer Name | Role | Phone | [...] | at [facility] [address] | [address] | | | | | [address] | [place], [place] | | | | | Mailcode: [id number] | [phone] | | | | | Manuel Charlton | [phone] | | | | | [facility] [place] | | | | | | [address] | | | | | | [phone] | | | +--------+ + + + [...]
--- OUTSIDE RECORDS SUMMARY | 2019-05-16 16:44 | XMS ---
PreManage Notification: VINEET CRANDALL Security Streaming Media Specialist Events No recent Security Events currently on file CRITERIA MET - [facility] - 2 Visits in 30 Days CARE PROVIDERS CHRIS GLASS [facility] Shruthi Kline PHONE: Unknown Maxim Maharaj Current PHONE: Unknown Marina has no Care Guidelines for this patient. Eda VISIT COUNT (12 MO.) [address] [place] [address] TOTAL 4 NOTE: Visits indicate total known visits. ED/UCC VISIT TRACKING (12 MO.) 05/16/2019 16:42 [facility] [place] TYPE: Emergency COMPLAINT: - DIZZY/NAUSEOUS 04/16/2019 13:33 [facility] [place] TYPE: Emergency COMPLAINT: - THROAT PAIN DIAGNOSES: - Pain in throat - Other custodial (current) drug therapy - Personal history of nicotine dependence - Personal history of malignant neoplasm of cervix uteri - Personal history of malignant neoplasm of breast - Sialoadenitis, unspecified 04/14/2019 19:46 N[facility] TYPE: Emergency COMPLAINT: - SOB, SWELLING DIAGNOSES: - Personal history of malignant neoplasm of cervix uteri - Personal history of malignant neoplasm of breast - Sialoadenitis, unspecified - Dyskinesia of esophagus - Acute upper respiratory infection, unspecified - Nicotine dependence, unspecified, uncomplicated - Localized swelling, mass and lump, neck 06/15/2018 14:33 N[facility] TYPE: Emergency COMPLAINT: - HEADACHE,NAUSEA DIAGNOSES: - Personal history of malignant neoplasm of cervix uteri - Dehydration - Nicotine dependence, unspecified, uncomplicated - Other custodial (current) drug therapy - Anemia, unspecified - Personal history of malignant neoplasm of breast - Headache INPATIENT VISIT TRACKING (12 MO.) 04/16/2019 23:59 Sin [facility]EED TYPE: Medical Surgical COMPLAINT: - BILATERAL MANDIBULAR SWELLING DIAGNOSES: 0. Sialoadenitis, unspecified 1. Sialoadenitis, unspecified 2. Acute tonsillitis, unspecified 3. Generalized enlarged lymph nodes 4. Dysphagia, unspecified 5. Gastro-esophageal reflux disease without esophagitis 6. Hypokalemia 7. Personal history of nicotine dependence 8. Personal history of malignant neoplasm of breast 9. Personal history of antineoplastic chemotherapy 10. Personal history of irradiation [email or web address]
[2019-05-16] MEDS ORDERED: ACETAMINOPHEN-118 M1 (16:59)
[2019-05-16] MEDS ORDERED: CEFDINIR300 MG (16:59)
== END 2019-05-16 19:07 | disposition home or self-care (01) ==
LOC: ED 16:41
DX: G89.18 Other acute postprocedural pain (principal); R07.0 Pain in throat; Z85.3 Personal history of malignant neoplasm of breast; Z85.41 Personal history of malignant neoplasm of cervix uteri
CPT/HCPCS: 80048; 85025; 99283

== ENCOUNTER 2019-09-23 17:10 | Emergency (ER) | payer BC ==
[~2019-09-23] VITALS: Ht 167.6 cm; Wt 117.0 kg
[~2019-09-23 17:10] MED LIST changes: +ACETAMINOPHEN-118 M1; +CEFDINIR300 MG
--- OUTSIDE RECORDS SUMMARY | 2019-09-23 17:12 | XMS ---
PreManage Notification: VINEET CRANDALL Security Director Case Events No recent Security Events currently on file CRITERIA MET - [facility] [place] [facility] PROVIDERS PAOLA MENENDEZ Chiropractor 05/17/2019-Current PHONE: [phone] OLGA SANDOVAL Nurse Practitioner: Women's Health 05/17/2019-Current PHONE: [phone] NIKI PARRA Nurse Practitioner: Family Current PHONE: [phone] Maxim Maharaj Current PHONE: Unknown CHRIS GLASS Primary Care 07/20/2015-Current PHONE: Unknown Marina has no Care Guidelines for this patient. Care History Medical/Surgical 05/17/2019 [facility] Patient canceled last appt with Olga Sandoval PCP re: Hospital f/u. No appts scheduled. 05/17/2019 [facility] - Patient is currently established with [facility]. If patient is seen in the ED during business hours. Please contact CHWs at [facility]. Care Recommendation: This patient has had 5 or more Emergency Department visits in the last 12 months.\T\nbsp; Patient requires education on the scope and purpose of the ED as an acute care provider not a Primary Care Provider and should not be utilized for chronic conditions.\T\nbsp; These are guidelines and the provider should exercise clinical judgment when providing care. [facility] MO[facility] NOTE: Visits indicate total known visits. ED/UCC VISIT TRACKING (12 MO.) 09/23/2019 17:10 [facility] [place] TYPE: Emergency COMPLAINT: - COUGH, FEVER, SOB 05/16/2019 16:42 [facility] [place] TYPE: Emergency COMPLAINT: - DIZZY/NAUSEOUS DIAGNOSES: - Personal history of malignant neoplasm of cervix uteri - Pain in throat - Other acute postprocedural pain - Personal history of malignant neoplasm of breast 04/16/2019 13:33 [facility] [place] TYPE: Emergency COMPLAINT: - THROAT PAIN DIAGNOSES: - Pain in throat - Other long wall mining machine tender (current) drug therapy - Personal history of [...] - Localized swelling, mass and lump, neck INPATIENT VISIT TRACKING (12 MO.) 04/16/2019 23:59 [...] antineoplastic chemotherapy 10. Personal history of irradiation [email or web address]
[2019-09-23] MEDS ORDERED: VIBRAMYCIN100 MG PO (17:45)
[2019-09-26] MEDS ORDERED: PREDNISONE20 MG PO (19:31)
[2019-09-26] MEDS ORDERED: NORCO 5-325 TA1 EACH PO (19:31)
[2019-09-26] MEDS ORDERED: VENTOLIN HFA18 GM INH (19:31)
== END 2019-09-23 18:10 | disposition home or self-care (01) ==
LOC: ED 17:10
DX: J06.9 Acute upper respiratory infection, unspecified (principal)
CPT/HCPCS: 71046; 99283-25

== ENCOUNTER 2021-10-07 12:30 | Emergency (ER) | payer SELFPAY ==
[~2021-10-07] VITALS: Ht 167.6 cm; Wt 117.0 kg
[~2021-10-07 12:30] MED LIST changes: +PREDNISONE20 MG PO; +VENTOLIN HFA18 GM INH; +VIBRAMYCIN100 MG PO
--- OUTSIDE RECORDS SUMMARY | 2021-10-07 12:32 | XMS ---
PreManage Notification: VINEET CRANDALL Security Debridging Machine Operator Events No recent Security Events currently on file CRITERIA MET - [facility] - 2 Visits in 30 Days CARE PROVIDERS PALOA MENENDEZ Chiropractor 05/17/2019-Current PHONE: [phone] AVEL SANDOVAL Nurse Practitioner: Women's Health 05/17/2019-Current PHONE: [phone] Marina has no Care Guidelines for this patient. Care History Medical/Surgical 05/17/2019 [facility] Patient canceled last appt with AVEL Holloway re: Hospital f/u. No appts scheduled. 05/17/2019 [facility] - Patient is currently established with [facility]. If patient is seen in the ED during business hours. Please contact CHWs at [facility]. Care Recommendation: This patient has had 5 or more Emergency Department visits in the last 12 months.\T\nbsp; Patient requires education on the scope and purpose of the ED as an acute care provider not a Primary Care Provider and should not be utilized for chronic conditions.\T\nbsp; These are guidelines and the provider should exercise clinical judgment when providing care. EGeoff VISIT COUNT (12 MO.) 1 [place] [address] [facility] TOTAL 2 NOTE: Visits indicate total known visits. ED/UCC VISIT TRACKING (12 MO.) 10/07/2021 12:31 [facility] [place] TYPE: Emergency COMPLAINT: - VAGINAL/PELVIC PAIN [facility]21 21[facility] [place] [facility] DIAGNOSES: 35504. DIZZY ABD/PELVIC PAIN 95600. Pelvic and perineal pain INPATIENT VISIT TRACKING (12 MO.) No inpatient visits to display in this time frame [email or web address]
[2021-10-07] MEDS ORDERED: DOXYCYCLINE HY100 M3 PO (12:43)
[2021-10-07] MEDS ORDERED: HYDROCODON-ACE1 EA10 PO ×2 (12:44→17:32)
[2021-10-07] MEDS ORDERED: METRONIDAZOLE500 MG PO (12:44)
[2021-10-07] MEDS ORDERED: ONDANSETRON ODT8 MG PO (17:32)
== END 2021-10-07 17:42 | disposition home or self-care (01) ==
LOC: ED 12:30
DX: R10.2 Pelvic and perineal pain (principal); Z85.3 Personal history of malignant neoplasm of breast; Z85.41 Personal history of malignant neoplasm of cervix uteri; Z86.718 Personal history of other venous thrombosis and embolism; D64.9 Anemia, unspecified; Z79.899 Other long term (current) drug therapy; Z79.891 Long term (current) use of opiate analgesic
CPT/HCPCS: 36415; 76830; 76856; 81001; 84703; 85025; 96374; 96375; 99284-25; J1170; J1885; J2405; J7030

== ENCOUNTER 2021-11-08 16:08 | Emergency (ER) | payer SELFPAY ==
[~2021-11-08] VITALS: Ht 167.6 cm; Wt 117.9 kg
[~2021-11-08 16:08] MED LIST changes: +DOXYCYCLINE HY100 M3 PO; +HYDROCODON-ACE1 EA10 PO; +METRONIDAZOLE500 MG PO; +ONDANSETRON ODT8 MG PO
[2021-11-08] MEDS ORDERED: IBUPROFEN800 MG PO (16:39)
[2021-11-08] MEDS ORDERED: HYDROCODON-ACE1 EA10 PO (16:39)
[2021-11-08] MEDS ORDERED: PERCOCET 5-3251 EACH PO (20:03)
== END 2021-11-08 20:41 | disposition home or self-care (01) ==
LOC: ED 16:08
DX: G89.18 Other acute postprocedural pain (principal); R10.30 Lower abdominal pain, unspecified; Z85.3 Personal history of malignant neoplasm of breast; Z85.41 Personal history of malignant neoplasm of cervix uteri; D64.9 Anemia, unspecified; Z86.718 Personal history of other venous thrombosis and embolism; Z79.899 Other long term (current) drug therapy
CPT/HCPCS: 36415; 74177; 80053; 85025; 96375; 96376; 99284-25; J1170; J1885; J2405; J7030; Q9967